=== PATIENT | male | born 1955 | race African-American/Black ===

== ENCOUNTER 2017-06-24 18:22 | Emergency (ER) | payer OTHER ==
[~2017-06-24] VITALS: Ht 132.1 cm; Wt 105.6 kg
[~2017-06-24 18:22] MED LIST: MULT-1030 PO; VITAMIN B PO; [UNRECOGNIZED DRUG - CODE] PO
[2017-06-24 18:30] VITALS: TEMP 36.6; Ht 132.1 cm; Wt 105.6 kg
[2017-06-24] MEDS ORDERED: ONDANSETRON INJ 2 MG/ML 2 ML VIAL IV STA (18:44)
[2017-06-24] MEDS ORDERED: MoRPHine SULFATE 4 MG/ML 1 ML CARP\\VIAL IV STA (18:44)
[2017-06-24 18:47] LABS: BASO % 0.2 %; BASO ABS # 0.01 K/uL (0-0.2); EOS % 1.2 %; EOS ABS # 0.07 K/uL (0-0.5); HEMATOCRIT 40.9 % (42-52); HEMOGLOBIN 14.6 g/dL (14.0-18.0); LYMPH % 31.9 %; LYMPH ABS # 1.89 K/uL (1.2-3.4); MEAN CELL VOLUME 90.9 fL (80-100); MEAN CORPUSCULAR HEMOGLOBIN 32.4 pg (25-34); MEAN CORPUSCULAR HGB CONC 35.7 g/dl (32-36); MEAN PLATELET VOLUME 10.7 fL (7.4-10.4); MONO % 6.6 %; MONO ABS # 0.39 K/uL (0.11-0.59); NEUT % 60.1 %; NEUT ABS # 3.56 K/uL (1.4-6.5); PLATELET COUNT 151 K/uL (130-400); RED CELL DISTRIBUTION WIDTH CV 12.5 % (11.5-14.5); RED CELL DISTRIBUTION WIDTH SD 41.7 fL (36.4-46.3); WHITE BLOOD COUNT 5.92 K/uL (4.8-10.8)
[2017-06-24] MEDS ORDERED: GI COCKTAIL PO ONE (19:00)
[2017-06-24 19:20] LABS: ALBUMIN 4.2 gm/dl (3.4-5.0); ALKALINE PHOSPHATASE 93 U/L (45-117); ALT/SGPT 32 U/L (12-78); AST/SGOT 50 U/L (15-37); BLOOD UREA NITROGEN 13 mg/dl (7-18); CALCIUM 9.2 mg/dl (8.5-10.1); CARBON DIOXIDE 24 mmol/L (21-32); CKMB 14.9 ng/ml (0.5-3.6); CREATININE 0.92 mg/dl (0.60-1.40); GLUCOSE 88 mg/dl (70-99); LIPASE 117 U/L (73-393); POTASSIUM 3.9 mmol/L (3.5-5.1); SODIUM 138 mmol/L (136-145); TOTAL PROTEIN 7.9 gm/dl (6.4-8.2)
--- NOTE | 2017-06-24 19:28 | DIAGNOSTIC IMAGING REPORT ---
CHEST ONE VIEW PORTABLE HISTORY: Atypical Chest Pain COMPARISON: None. FINDINGS: Lucency at the left lung apex which may represent a large bleb. This measures 6.9 cm. No definite pneumothorax. The heart is top normal in size. Left-sided dual-chamber pacemaker. A few right apical blebs. Emphysema. No focal lung consolidations to suggest pneumonia. No evidence for pulmonary edema. IMPRESSION: 1. No acute process within the chest. 2. Emphysema with biapical blebs. No definite pneumothorax. Electronically signed by: Russ Dimas M.D. 06/24/2017 7:27 PM Dictated Date/Time: 06/24/2017 7:25 PM
[2017-06-24 19:33] LABS: INR 0.9 (0.9-1.1)
[2017-06-24] MEDS ORDERED: OPTIRAY 320 IV PRN (20:30)
[2017-06-24] MEDS ORDERED: LIDOCAINE HCL 2% VISC SOLN 20 ML UDC ONE (20:38)
[2017-06-24] MEDS ORDERED: ALUMINUM/MAGNESIUM SUSP 30 ML UDC ONE (20:38)
--- NOTE | 2017-06-24 20:52 | DIAGNOSTIC IMAGING REPORT ---
CHEST CTA for PULMONARY ARTERIES CT DOSE: 597.59 mGy.cm HISTORY: Atypical chest pain. Positive d-dimer. TECHNIQUE: Multiaxial CT images of the chest were performed following the intravenous administration of contrast to evaluate the pulmonary arteries. Maximal intensity projection images were also obtained. A dose lowering technique was utilized adhering to the principles of ALARA. COMPARISON STUDY: Chest 06/24/2017. FINDINGS: No pleural or pericardial effusions. Left-sided dual-chamber pacemaker. Normal caliber thoracic aorta with no evidence for dissection. There is a tortuous aortic arch. Calcified left hilar lymph nodes. Some of the subsegmental pulmonary arteries are nondiagnostic due to motion artifact. However, the remaining pulmonary arteries show no definite filling defects to suggest pulmonary embolus. Calcified granuloma within the left lower lobe. Advanced bullous emphysema with multiple large blebs at the lung apices. A few scattered linear densities at the lung bases favor subsegmental atelectasis. Groundglass densities within the lower lobes posteriorly favor dependent change. Otherwise, no focal lung consolidations to suggest pneumonia. The central airways are patent. No fractures within the visualized osseous structures. The visualized liver, spleen, and adrenal glands are unremarkable. Hypodense lesions within the left kidney are incompletely characterize but favor cysts. These measure up to 2 cm. No mediastinal or hilar lymphadenopathy. IMPRESSION: 1. No evidence for pulmonary embolus with limitations as described above. 2. Advanced bullous emphysema. 3. A few bibasilar linear densities and groundglass densities within the lower lobes posteriorly and atelectasis/dependent change. Otherwise, no focal lung consolidations to suggest pneumonia. Electronically signed by: Russ Dimas M.D. 06/24/2017 8:51 PM Dictated Date/Time: 06/24/2017 8:41 PM
[2017-06-24 21:37] VITALS: BP 119/92; PULSE 70; O2SAT 98
--- NOTE | 2017-06-24 22:21 | EMERGENCY ROOM VISIT NOTE ---
History Report prepared by Scribe: Vika Robles Under the Supervision of: Dr. Dez Villagomez D.O. First contact with patient: 18:21 Stated Complaint: CHEST PAIN, SOB History of Present Illness The patient is a 61 year old male who presents to the Emergency Room with complaints of intermittent chest pain for the past 2 to 3 weeks. He was brought to the ED via EMS. He rates his current pain as a 7/10 in severity. This morning upon waking around 0400, he developed sharp chest pain that worsened when he was moving around at work today. He called EMS and was given Aspirin and Nitroglycerin in the field that provided minimal relief. He admits to some left arm pain earlier today that has since resolved. The patient has a history of a previous MO and has a pacemaker in place. He denies any history of cardiac stents. His last cardiac catheterization was in 1994. He notes he recently moved to the area from [place] and does not have a PCP yet, but is scheduled to see Dr. Ruth at [facility] next week. Pt denies headache, change in vision, fevers, shortness of breath, nausea, vomiting, diarrhea, pain with urination, and melena. Source of History: patient Onset: 2 to 3 weeks [employer] Position: chest Symptom Intensity: 7/10 Quality: sharp Timing: intermittent Modifying Factors (Worsening): movement Modifying Factors (Relieving): other (Aspirin, nitroglycerin) Associated Symptoms: No fevers, No headache, No SOB, No nausea, No vomiting , No melena, No diarrhea, No urinary symptoms Review of Systems See HPI for pertinent positives & negatives. A total of 10 systems reviewed and were otherwise negative. Past Medical & Surgical Medical Problems: (1) Cardiac pacemaker in situ (2) Hepatitis C Social History Smoking Status: Current Every Day Smoker Alcohol Use: occasionally Drug Use: none Marital Status: Housing Status: lives with significant other Occupation Status: employed Current/Historical Medications Scheduled Amlodipine (Norvasc), 10 MG PO DAILY Multiple Vitamins W/ Minerals (Centrum Men), 1 TAB PO DAILY Ribavirin (Rebetol), 200 MG PO DAILY [Vitamin B], Unknown Dose PO DAILY Allergies Coded Allergies: No Known Allergies (Unverified , 01/23/16) Physical Exam Vital Signs Date Time Temp Pulse Resp B/P (MAP) Pulse Ox O2 Delivery O2 Flow Rate FiO2 06/24/17 21:37 70 20 119/92 98 06/24/17 20:00 60 18 117/86 97 Room Air 06/24/17 18:56 Room Air 06/24/17 18:34 60 06/24/17 18:30 36.6 60 18 142/96 94 Room Air Physical Exam GENERAL: Sitting up in bed, alert, disheveled appearing, well nourished, no distress, non-toxic EYE EXAM: normal conjunctiva. OROPHARYNX: no exudate, no erythema, lips, buccal mucosa, and tongue normal and mucous membranes are moist NECK: supple, no nuchal rigidity, no adenopathy, non-tender LUNGS: Clear to auscultation. Normal chest wall mechanics HEART: no murmurs, S1 normal and S2 normal CHEST: Pacemaker located in left chest wall ABDOMEN: abdomen soft, non-tender, normo-active bowel sounds, no masses, no rebound or guarding. BACK: Back is symmetrical on inspection and there is no deformity, no midline tenderness, no CVA tenderness. SKIN: no rashes and no bruising UPPER EXTREMITIES: upper extremities are grossly normal. LOWER EXTREMITIES: No pitting edema. Calves are equal bilaterally. NEURO EXAM: Normal sensorium, cranial nerves II-XII grossly intact, normal speech, no gross weakness of arms, no gross weakness of legs. Gross sensation intact. Medical Decision & Procedures ER Provider Diagnostic Interpretation: Radiology results as stated below per my review and the radiologist's interpretation: CHEST ONE VIEW PORTABLE HISTORY: Atypical Chest Pain COMPARISON: None. FINDINGS: Lucency at the left lung apex which may represent a large bleb. This measures 6.9 cm. No definite pneumothorax. The heart is top normal in size. Left-sided dual-chamber pacemaker. A few right apical blebs. Emphysema. No focal lung consolidations to suggest pneumonia. No evidence for pulmonary edema. IMPRESSION: 1. No acute process within the chest. 2. Emphysema with biapical blebs. No definite pneumothorax. Electronically signed by: Russ Dimas M.D. 06/24/2017 7:27 PM Laboratory Results 06/24/17 18:10 Red Blood Count 4.50, Mean Corpuscular Volume 90.9, Mean Corpuscular Hemoglobin 32.4, Mean Corpuscular Hemoglobin Concent 35.7, Mean Platelet Volume 10.7, Neutrophils (%) (Auto) 60.1, Lymphocytes (%) (Auto) 31.9, Monocytes (%) (Auto) 6.6, Eosinophils (%) (Auto) 1.2, Basophils (%) (Auto) 0.2, Neutrophils # (Auto) 3.56, Lymphocytes # (Auto) 1.89, Monocytes # (Auto) 0.39, Eosinophils # (Auto) 0.07, Basophils # (Auto) 0.01 06/24/17 18:10 Test 06/24/17 18:10 06/24/17 21:30 White Blood Count 5.92 K/uL (4.8-10.8) Red Blood Count 4.50 M/uL (4.7-6.1) Hemoglobin 14.6 g/dL (14.0-18.0) Hematocrit 40.9 % (42-52) Mean Corpuscular Volume 90.9 fL (80-100) Mean Corpuscular Hemoglobin 32.4 pg (25-34) Mean Corpuscular Hemoglobin Concent 35.7 g/dl (32-36) Platelet Count 151 K/uL (130-400) Mean Platelet Volume 10.7 fL (7.4-10.4) Neutrophils (%) (Auto) 60.1 % Lymphocytes (%) (Auto) 31.9 % Monocytes (%) (Auto) 6.6 % Eosinophils (%) (Auto) 1.2 % Basophils (%) (Auto) 0.2 % Neutrophils # (Auto) 3.56 K/uL (1.4-6.5) Lymphocytes # (Auto) 1.89 K/uL (1.2-3.4) Monocytes # (Auto) 0.39 K/uL (0.11-0.59) Eosinophils # (Auto) 0.07 K/uL (0-0.5) Basophils # (Auto) 0.01 K/uL (0-0.2) RDW Standard Deviation 41.7 fL (36.4-46.3) RDW Coefficient of Variation 12.5 % (11.5-14.5) Immature Granulocyte % (Auto) 0.0 % Immature Granulocyte # (Auto) 0.00 K/uL (0.00-0.02) Prothrombin Time 9.8 SECONDS (9.0-12.0) Prothromb Time International Ratio 0.9 (0.9-1.1) D-Dimer 1530 ug/L FEU (0-500) Anion Gap 9.0 mmol/L (3-11) Est Creatinine Clear Calc Drug Dose 74.8 ml/min Estimated GFR () 105.1 Estimated GFR (Non- 90.7 BUN/Creatinine Ratio 14.0 (10-20) Calcium Level 9.2 mg/dl (8.5-10.1) Total Bilirubin 0.6 mg/dl (0.2-1) Direct Bilirubin 0.2 mg/dl (0-0.2) Aspartate Amino Transf (AST/SGOT) 50 U/L (15-37) Alanine Aminotransferase (ALT/SGPT) 32 U/L (12-78) Alkaline Phosphatase 93 U/L (45-117) Total Creatine Kinase 1247 U/L (39-308) Creatine Kinase MB 14.9 ng/ml (0.5-3.6) Creatine Kinase MB Ratio 1.2 (0-3.0) Total Protein 7.9 gm/dl (6.4-8.2) Albumin 4.2 gm/dl (3.4-5.0) Lipase 117 U/L (73-393) Troponin I < 0.015 ng/ml (0-0.045) Laboratory results per my review. Medications Administered Medications (Trade) Dose Ordered Sig/Anuradha Route Start Time Stop Time Status Last Admin Dose Admin Morphine Sulfate (MoRPHine SULFATE INJ) 4 mg NOW STAT IV 06/24/17 18:44 06/24/17 18:45 DC 06/24/17 19:02 4 MG Ondansetron HCl (Zofran Inj) 4 mg NOW STAT IV 06/24/17 18:44 06/24/17 18:45 DC 06/24/17 18:58 4 MG Lidocaine HCl (Viscous Lidocaine 2% Soln) 20 ml STK-MED ONCE .ROUTE 06/24/17 20:38 06/24/17 20:39 DC 06/24/17 21:02 20 ML Al Hydroxide/Mg Hydroxide (Maalox Susp) 30 ml STK-MED ONCE .ROUTE 06/24/17 20:38 06/24/17 20:39 DC 06/24/17 21:02 30 ML ECG Per My Interpretation Indication: chest pain Rate (beats per minute): 62 Rhythm: other (atrial paced) Findings: other (normal axis) ED Course ED COURSE: Vital signs were reviewed and showed the patient is situationally hypertensive The patients medical record was reviewed The above diagnostic studies were performed and reviewed. ED treatments and interventions as stated above. 1823: The patient was evaluated in room C9. A complete history and physical examination was performed. 1844: Zofran 4 mg IV, Morphine Sulfate 4 mg IV. 0: I reevaluated the patient. He states he feels loopy from the Morphine, but is more comfortable. 2037: Maalox Susp 30 ml PO, Lidocaine HCl 2% 20 ml PO. 2110: I discussed the patients case with Dr. Pina, [facility] Hospitalist. The patient will be further evaluated. 2124: Case Management informed me the patient does not want to stay in the hospital and would like to go home. 0: Upon reevaluation, the patient is feeling well and resting comfortably. He is agreeable to having repeat blood work drawn before he leaves. I discussed my findings with the patient and he understands and agrees with the treatment plan. Based on the patients age, coexisting illnesses, exam and lab findings the decision to treat as an outpatient was made. The patient remained stable while under my care. The patient appeared well at the time of discharge. Medical Decision Differential diagnoses includes but is not limited to acute coronary syndrome, myocardial infarction, pericarditis, pulmonary embolus, aortic dissection, pneumonia, pneumothorax, musculoskeletal, shingles, esophageal. Patient is a 61-year-old male that presents the ER for chest pain which she notes started at 4 AM this morning. He describes a sharp stabbing. No other exacerbating or remitting factors. He does have a history of a previous MO although he then change his story and notes that he had a CVA. He does have a pacemaker. CBC along with BMP, LFTs, bilirubin and troponin was negative. Lipase is normal. D-dimer was elevated and consequently CT PE was performed and unremarkable. EKG did not show a STEMI. Patient was given nitro and aspirin. He had resolution of his pain. On reevaluation I did strongly recommend admission. Pacemaker was interrogated and unremarkable. Significant other was at bedside. He notes that he does not want to stay as he does not feel that this is his heart and wants to get his significant other home. I had care management try to set up and additionally for her to get home but he notes he will not stay. After informed refusal of care and extensive explanation he was discharged to follow-up with PCP as an outpatient. He did allow us to redraw another troponin just prior to him leaving which eventually resulted as negative. The patient requested to leave. I considered this to be leaving against medical advice. I personally discussed the following with them. They currently had a medical condition of: chest pain and I am concerned that they have ACS or other serious pathology even despite negative troponin. My proposed course of evaluation and treatment and that of any consultants is: Admission. Benefits would include: possible diagnosis or excluding of ACS, unstable angina or an alternative serious conditions, which if identified early would lead to appropriate intervention in a timely manner lessing the burden of disability and . Risks of leaving before this had been completed include: misdiagnosis, worsening illness leading up to and including prolonged or permanent disability or . Specific risks pertinent, but not all inclusive, of their current medical condition include but are not limited to: and disability. Despite this they stated they wanted to leave due to not taking that this is his heart and wanted to get home and refused further evaluation, treatment, or admission at this time. They appear clinically sober, to be mentating appropriately, free from distracting injury, have controlled pain, appear to have intact insight, judgment, and reason and in my opinion have the capacity to make this decision. Specifically, they were able to verbally state back in a coherent manner their current medical condition/current diagnosis, the proposes course of treatment, and the risks, benefits, and alternatives of treatment versus leaving against medical advice. They understand that they may return to seek medical attention here at whatever time they want. I highly advised them to return to the Emergency Department immediately if they experienced any: Chest pain or shortness of breath, reconsidered treatment a/o admission, or had any other concerns. This would be without any repercussions. I recommended they follow-up with PCP within 24 hours for further evaluation and treatment. They were discharged with informed refusal of care Medication Reconcilliation Current Medication List: was personally reviewed by me Blood Pressure Screening Patient's blood pressure: Elevated blood pressure Blood pressure disposition: Elevated BP felt to be situational Consults Time Called: 2110 Consulting Physician: Dr. Pina, [facility] Hospitalist Returned Call: 2110 I discussed the patients case with Dr. Pina, [facility] Hospitalist. The patient will be further evaluated. Impression Primary Impression: Precordial chest pain Scribe Attestation The scribe's documentation has been prepared under my direction and personally reviewed by me in its entirety. I confirm that the note above accurately reflects all work, treatment, procedures, and medical decision making performed by me. Departure Information Dispostion Home / Self-Care Referrals No Doctor, Assigned (PCP) Patient Instructions Chest Pain - [facility], My [facility] Additional Instructions He presented to the ER with chest pain. I do believe that this could be your heart. I recommended observation overnight for which you declined as you wanted to get your significant other home. If you have any recurrence of this pain or at any point can you please return to the ER as soon as possible for further evaluation as I am concerned that this could be your heart and could kill you or disable you. Please follow up with your primary care doctor with in the next 24 hours. Any worsening of your symptoms, please return to the ED immediately. This includes any fevers greater than 100.4, worsening pain, chest pain, shortness breath, persistent nausea, vomiting, unable to eat or drink, or any other concerning signs or symptoms from your standpoint. Please follow-up with your primary care doctor and pharmacy picking tech as possible.
[2017-06-25] MEDS ORDERED: ALBUTEROL NEBS INH (15:17)
[2017-06-25] MEDS ORDERED: ASPI81TA28 PO (15:17)
[2017-06-25] MEDS ORDERED: AMLO-114 PO (21:21)
[2017-06-27] MEDS ORDERED: PRT40 PO (07:57)
[2017-06-27] MEDS ORDERED: LPR25 PO (07:57)
== END 2017-06-24 21:44 | disposition home or self-care (01) ==
LOC: EDBD 18:22 → C.EDC 18:23
DX: R07.2 Precordial pain (principal); I25.2 Old myocardial infarction; Z95.0 Presence of cardiac pacemaker; B19.20 Unspecified viral hepatitis C without hepatic coma; F17.210 Nicotine dependence, cigarettes, uncomplicated; Z79.899 Other long term (current) drug therapy

== ENCOUNTER 2017-06-25 14:21 | Observation (INO) | payer OTHER ==
[~2017-06-25] VITALS: Ht 193.7 cm; Wt 102.9 kg
[2017-06-25] MEDS ORDERED: ASPIRIN 81 MG CHEW PO STA (14:49)
--- NOTE | 2017-06-25 15:00 | EMERGENCY ROOM VISIT NOTE ---
History Report prepared by Sadiq: Lai Trotter Under the Supervision of: Dr. Merlin Barber D.O. First contact with patient: 14:39 Chief Complaint: CHEST PAIN Stated Complaint: CHEST PAIN, STOMACH PAIN, WEAK History of Present Illness The patient is a 61 year old male who presents to the Emergency Room with complaints of waxing and waning chest pain that began yesterday while at work. The patient rates the severity of the pain as a 10/10 at its worst, and notes that it is localized under the left breast. The patient called for EMS yesterday and was brought to the ED. His symptoms were improved by Nitroglycerin yesterday, and he went home against the physician's suggestions. Today his symptoms have returned. He notes that his symptoms are worsened with physical activity. When his pain onsets severely he becomes short of breath and diaphoretic. The patient had a pacemaker placed in 2003, which failed and he needed it to be replaced. The patient does not currently have any nitroglycerin tablets at home currently. Source of History: patient Onset: Yesterday Position: chest (left) Quality: other (Chest Pain) Timing: waxes/wanes Modifying Factors (Worsening): exertion Associated Symptoms: + diaphoresis, + SOB Review of Systems See HPI for pertinent positives & negatives. A total of 10 systems reviewed and were otherwise negative. Past Medical & Surgical Medical Problems: (1) Cardiac pacemaker in situ (2) Hepatitis C Social History Smoking Status: Current Every Day Smoker Alcohol Use: occasionally Drug Use: none Marital Status: Housing Status: lives with significant other Occupation Status: employed Current/Historical Medications Scheduled Amlodipine (Norvasc), 10 MG PO DAILY [Albuterol Nebs], 1 DOSE INH PRN UD Scheduled PRN Aspirin (Aspirin Ec), 81 MG PO DAILY PRN for chest pain Allergies Coded Allergies: No Known Allergies (Unverified , 01/23/16) Physical Exam Vital Signs Date Time Temp Pulse Resp B/P (MAP) Pulse Ox O2 Delivery O2 Flow Rate FiO2 06/25/17 16:51 60 16 96 06/25/17 16:36 64 19 97 06/25/17 16:21 60 22 97 06/25/17 16:13 117/72 06/25/17 16:06 60 17 94 06/25/17 15:51 61 24 99 06/25/17 15:36 61 16 95 06/25/17 15:30 65 20 132/94 98 Room Air 06/25/17 15:21 61 13 132/94 94 06/25/17 15:06 60 21 98 06/25/17 14:54 98 Room Air 06/25/17 14:53 98 Room Air 06/25/17 14:53 98 Room Air 06/25/17 14:51 63 21 99 06/25/17 14:48 60 06/25/17 14:34 36.7 61 20 150/98 99 Room Air Physical Exam GENERAL: Patient is awake, alert, and in no acute distress. Patient is resting comfortably and showing no signs of anxiety EYES: The conjunctivae are clear. The pupils are round and reactive. EARS, NOSE, MOUTH AND THROAT: The nose is without any evidence of any deformity. Mucous membranes are moist tongue is midline NECK: The neck is nontender and supple. RESPIRATORY: Normal respiratory effort is noted there is no evidence of wheezing rhonchi or rales CARDIOVASCULAR: Regular rate and rhythm noted there no murmurs rubs or gallops normal S1 normal S2 GASTROINTESTINAL: The abdomen is soft. Bowel sounds are present in all quadrants. Abdomen is nontender MUSCULOSKELETAL/EXTREMITIES: There is no evidence of gross deformity full range of motion is noted in the hips and shoulders SKIN: There is no obvious evidence of any rash. There are no petechiae, pallor or cyanosis noted. NEUROLOGIC: Patient is awake alert and oriented x3. Medical Decision & Procedures ER Provider Diagnostic Interpretation: Radiology results as stated below per my review and radiologist interpretation: CHEST ONE VIEW PORTABLE CLINICAL HISTORY: Chest pain. COMPARISON STUDY: Chest radiograph and chest CT June 24, 2017. FINDINGS: Severe bullous emphysema is noted, most pronounced within the left lung apex. There is no pneumothorax or pleural effusion. A dual lead left subclavian pacemaker is in place. Linear left basilar opacity is suggestive of atelectasis. There is no consolidation to suggest pneumonia. There is no evidence for pulmonary edema. IMPRESSION: 1. No acute cardiopulmonary findings. 2. Severe bullous emphysema. 3. Linear left basilar opacity suggestive of atelectasis Electronically signed by: Juan Kirkland M.D. 06/25/2017 3:15 PM Dictated Date/Time: 06/25/2017 3:13 PM Laboratory Results 06/25/17 14:45 Red Blood Count 4.45, Mean Corpuscular Volume 91.5, Mean Corpuscular Hemoglobin 31.9, Mean Corpuscular Hemoglobin Concent 34.9, Mean Platelet Volume 11.0, Neutrophils (%) (Auto) 61.0, Lymphocytes (%) (Auto) 29.0, Monocytes (%) (Auto) 7.9, Eosinophils (%) (Auto) 1.7, Basophils (%) (Auto) 0.2, Neutrophils # (Auto) 2.93, Lymphocytes # (Auto) 1.39, Monocytes # (Auto) 0.38, Eosinophils # (Auto) 0.08, Basophils # (Auto) 0.01 06/25/17 14:45 Test 06/25/17 14:45 06/25/17 14:58 White Blood Count 4.80 K/uL (4.8-10.8) Red Blood Count 4.45 M/uL (4.7-6.1) Hemoglobin 14.2 g/dL (14.0-18.0) Hematocrit 40.7 % (42-52) Mean Corpuscular Volume 91.5 fL (80-100) Mean Corpuscular Hemoglobin 31.9 pg (25-34) Mean Corpuscular Hemoglobin Concent 34.9 g/dl (32-36) Platelet Count 150 K/uL (130-400) Mean Platelet Volume 11.0 fL (7.4-10.4) Neutrophils (%) (Auto) 61.0 % Lymphocytes (%) (Auto) 29.0 % Monocytes (%) (Auto) 7.9 % Eosinophils (%) (Auto) 1.7 % Basophils (%) (Auto) 0.2 % Neutrophils # (Auto) 2.93 K/uL (1.4-6.5) Lymphocytes # (Auto) 1.39 K/uL (1.2-3.4) Monocytes # (Auto) 0.38 K/uL (0.11-0.59) Eosinophils # (Auto) 0.08 K/uL (0-0.5) Basophils # (Auto) 0.01 K/uL (0-0.2) RDW Standard Deviation 42.3 fL (36.4-46.3) RDW Coefficient of Variation 12.5 % (11.5-14.5) Immature Granulocyte % (Auto) 0.2 % Immature Granulocyte # (Auto) 0.01 K/uL (0.00-0.02) Prothrombin Time 10.0 SECONDS (9.0-12.0) Prothromb Time International Ratio 1.0 (0.9-1.1) Activated Partial Thromboplast Time 28.7 SECONDS (21.0-31.0) Partial Thromboplastin Ratio 1.1 Anion Gap 8.0 mmol/L (3-11) Est Creatinine Clear Calc Drug Dose 101.7 ml/min Estimated GFR () 90.7 Estimated GFR (Non- 78.2 BUN/Creatinine Ratio 11.2 (10-20) Calcium Level 8.5 mg/dl (8.5-10.1) Total Bilirubin 0.4 mg/dl (0.2-1) Direct Bilirubin < 0.1 mg/dl (0-0.2) Aspartate Amino Transf (AST/SGOT) 40 U/L (15-37) Alanine Aminotransferase (ALT/SGPT) 29 U/L (12-78) Alkaline Phosphatase 100 U/L (45-117) Total Creatine Kinase 821 U/L (39-308) Creatine Kinase MB 9.5 ng/ml (0.5-3.6) Creatine Kinase MB Ratio 1.2 (0-3.0) Total Protein 7.8 gm/dl (6.4-8.2) Albumin 4.0 gm/dl (3.4-5.0) Lipase 236 U/L (73-393) Bedside Troponin I < 0.030 ng/ml (0-0.045) Laboratory results per my review. Medications Administered Medications (Trade) Dose Ordered Sig/Anuradha Route Start Time Stop Time Status Last Admin Dose Admin Aspirin (Aspirin Chew) 324 mg NOW STAT PO 06/25/17 14:49 06/25/17 14:50 DC 06/25/17 15:04 324 MG Nitroglycerin (Nitrostat Tab) 0.4 mg Q5M PRN SL 06/25/17 15:00 07/25/17 14:59 06/25/17 15:54 0.4 MG Pantoprazole Sodium (Protonix Tab) 40 mg NOW STAT PO 06/25/17 16:52 06/25/17 17:13 DC 06/25/17 17:47 40 MG ECG Per My Interpretation Indication: chest pain, diaphoresis, SOB/dyspnea Rate (beats per minute): 64 Rhythm: other (Atrially paced) Findings: paced rhythm, other (No PVCs, no acute ST-segment abnormalities. ) Comparison ECG Date: 06/25/2016 Change: no significant change ED Course 1448: The patient was evaluated in room B6. A complete history and physical examination were performed. 1449: Ordered Aspirin 324 mg PO. 1500: Ordered Nitroglycerin 0.4 mg SL. 1606: I discussed the case with Dr. Adolfo CAICEDO Hospitalist. She will evaluate the patient for further treatment. Medical Decision Differential diagnosis: Etiologies such as cardiac ischemia, aortic dissection, pulmonary embolism, pneumonia, pneumothorax, musculoskeletal, infections, pericarditis, myocarditis , esophageal rupture, gastrointestinal, as well as others were entertained. Nursing notes reviewed. Patient's previous electronic medical records reviewed. The patient is a 61-year-old male who presented to the emergency department for evaluation of chest discomfort. The patient was seen yesterday with similar complaints. It was recommended that he stay in the hospital for further evaluation. The patient decided he did not wish to stay in the hospital and left against the advice of the admitting physician. The patient returned today because his chest pain returned. The patient was having exertional symptoms. I discussed the patient's laboratory and radiographic studies with him. I discussed the limitations of the emergency department workup with him. Because of his symptoms I discussed this case with the on-call amount and the hospitalist group. They have agreed to evaluate the patient in the emergency department for further management and disposition. Medication Reconcilliation Current Medication List: was personally reviewed by me Blood Pressure Screening Patient's blood pressure: Elevated blood pressure referred to hospitalist Consults Time Called: 1600 Consulting Physician: Dr. Adolfo CAICEDO Hospitalist Returned Call: 1606 I discussed the case with Dr. Adolfo Britton. She will evaluate the patient for further treatment. Impression Primary Impression: Exertional chest pain Scribe Attestation The scribe's documentation has been prepared under my direction and personally reviewed by me in its entirety. I confirm that the note above accurately reflects all work, treatment, procedures, and medical decision making performed by me. Departure Information Dispostion Being Evaluated By Hospitalist Referrals Fior Ruth DO (PCP) Patient Instructions My [facility]
[2017-06-25] MEDS: NITROGLYCERIN 0.4 MG SL PER TAB CHARGE SL PRN ×3 (15:04→21:42)
[2017-06-25 15:10] LABS: PTT PATIENT 28.7 SECONDS (21.0-31.0)
[2017-06-25 15:14] LABS: BASO % 0.2 %; BASO ABS # 0.01 K/uL (0-0.2); EOS % 1.7 %; EOS ABS # 0.08 K/uL (0-0.5); HEMATOCRIT 40.7 % (42-52); HEMOGLOBIN 14.2 g/dL (14.0-18.0); IG# 0.01 K/uL (0.00-0.02); LYMPH ABS # 1.39 K/uL (1.2-3.4); MEAN CELL VOLUME 91.5 fL (80-100); MEAN CORPUSCULAR HEMOGLOBIN 31.9 pg (25-34); MEAN CORPUSCULAR HGB CONC 34.9 g/dl (32-36); MONO % 7.9 %; MONO ABS # 0.38 K/uL (0.11-0.59); NEUT ABS # 2.93 K/uL (1.4-6.5); PLATELET COUNT 150 K/uL (130-400); RED CELL DISTRIBUTION WIDTH CV 12.5 % (11.5-14.5); RED CELL DISTRIBUTION WIDTH SD 42.3 fL (36.4-46.3)
--- NOTE | 2017-06-25 15:16 | DIAGNOSTIC IMAGING REPORT ---
CHEST ONE VIEW PORTABLE CLINICAL HISTORY: Chest pain. COMPARISON STUDY: Chest radiograph and chest CT June 24, 2017. FINDINGS: Severe bullous emphysema is noted, most pronounced within the left lung apex. There is no pneumothorax or pleural effusion. A dual lead left subclavian pacemaker is in place. Linear left basilar opacity is suggestive of atelectasis. There is no consolidation to suggest pneumonia. There is no evidence for pulmonary edema. IMPRESSION: 1. No acute cardiopulmonary findings. 2. Severe bullous emphysema. 3. Linear left basilar opacity suggestive of atelectasis Electronically signed by: Juan Kirkland M.D. 06/25/2017 3:15 PM Dictated Date/Time: 06/25/2017 3:13 PM
[2017-06-25] MEDS ORDERED: ASPI81TA28 PO (15:17)
[2017-06-25] MEDS ORDERED: ALBUTEROL NEBS INH (15:17)
[2017-06-25 15:45] LABS: ALKALINE PHOSPHATASE 100 U/L (45-117); ALT/SGPT 29 U/L (12-78); AST/SGOT 40 U/L (15-37); BLOOD UREA NITROGEN 12 mg/dl (7-18); CALCIUM 8.5 mg/dl (8.5-10.1); CARBON DIOXIDE 24 mmol/L (21-32); CKMB 9.5 ng/ml (0.5-3.6); CREATININE 1.04 mg/dl (0.60-1.40); GLUCOSE 98 mg/dl (70-99); LIPASE 236 U/L (73-393); POTASSIUM 3.9 mmol/L (3.5-5.1); SODIUM 137 mmol/L (136-145); TOTAL PROTEIN 7.8 gm/dl (6.4-8.2)
[2017-06-25] MEDS ORDERED: PANTOprazole SOD 40 MG TAB PO STA (16:52)
[2017-06-25] MEDS ORDERED: MoRPHine SULFATE 4 MG/ML 1 ML CARP\\VIAL IV PRN ×2 (17:00→17:15)
[2017-06-25] MEDS ORDERED: MAGNESIUM HYDROXIDE SUSP 30 ML UDC PO PRN (17:00)
[2017-06-25] MEDS ORDERED: ALUMINUM/MAGNESIUM/SIMETH (MAALOX MAX) 30 ML UDC PO PRN (17:00)
[2017-06-25] MEDS ORDERED: NITROGLYCERIN 0.4 MG SL PER TAB CHARGE SL PRN (17:00)
[2017-06-25] MEDS ORDERED: POLYETHYLENE (MIRALAX) 17 GM PACK PO PRN (17:00)
[2017-06-25] MEDS ORDERED: ONDANSETRON INJ 2 MG/ML 2 ML VIAL IV PRN (17:00)
[2017-06-25] MEDS ORDERED: ACETAMINOPHEN 325 MG TAB PO PRN (17:00)
[2017-06-25] MEDS ORDERED: ZOLPIDEM TARTRATE 5 MG TAB PO PRN (17:00)
--- NOTE | 2017-06-25 17:12 | History and Physical ---
History & Physical Date of Service June 25, 2017. History & Physical chest pain rule out [id number]
[2017-06-25] MEDS ORDERED: IV FLUIDS COMPLETED PRN (17:15)
[2017-06-25] MEDS ORDERED: OPTIRAY 320 IV PRN (17:15)
[2017-06-25] MEDS ORDERED: METOPROLOL TARTRATE 25 MG TAB PO STA (17:19)
[2017-06-25] MEDS ORDERED: METOPROLOL TARTRATE 50 MG TAB ONE (17:42)
--- NOTE | 2017-06-25 17:51 | HISTORY & PHYSICAL EXAMINATION ---
DATE OF ADMISSION: 06/25/2017 This is observation H and P, 35 minutes. CHIEF COMPLAINT: Chest pain. HISTORY OF PRESENT ILLNESS: The patient is a 61-year-old male complaining of chest pain, coming to the Emergency Room. He was seen in this Emergency Room yesterday because of the chest pain pain. He had evaluation, enzyme troponin was negative, and chest CT has rule out PE, however was recommended to be observation in the hospital; however, he left against medical advice. The patient reported he is having the chest pain for 2 days, comes and goes, and it has been getting worse while he walks, he rates the pain as 10/10 at worst, which is localized under the left breast. He came into the Emergency Room yesterday by ambulance, and his symptom was improved after nitroglycerin yesterday. Today, he reported his chest pain returned, which has been getting worse, associated with physical activities. He reported the chest pain is associated with diaphoresis and shortness of breath. When I examined him, he reported the chest pain was 8/10 radiation to the back. Associated with mild nauseation; no vomiting; denied dysuria, urgency, or frequencies. ALLERGIES: No known drug allergies. PAST MEDICAL HISTORY: Include significant cardiac pacemaker placement x2, the first time was failed and the second time was successful, the reason for the pacemaker was because of some heart murmurs, and some syncope events. FAMILY HISTORY: Per record, he has a history of hep C; however, the patient denied. SOCIAL HISTORY: Continue smoking less than half pack per day. Denied alcohol abuse disorder, denied illicit drug abuse. Lives with significant others. MEDICATIONS: Current medicines include amlodipine 10 mg p.o. daily for high blood pressure, albuterol nebulizer treatment use as needed. As needed p.r.n. medication include aspirin for chest pain. REVIEW OF SYSTEMS: Please see HPI. PHYSICAL EXAMINATION: VITAL SIGNS: Temperature 36.7, pulse 61, respiration rate 20, blood pressure initially was 150/98, currently is 132/94. GENERAL: The patient is male, awake, alert and oriented, pleasant, conversational. Reports he is in pain. HEAD: Normocephalic. EYES: Pupils equal, round responds to light. EARS: Ear was normal. NOSE: Normal. NECK: Supple. Thyroid, no enlargement. Trachea midline. HEART: Regular rhythm, S1, S2, has no murmur. LUNGS: Decreased breathing sounds. There was no wheezing, rhonchi or crackles. ABDOMEN: Soft, nontender. Bowel sound was positive. GENITOURINARY AND RECTAL: Deferred. Bilateral CVA was nontender. BILATERAL LOWER EXTREMITIES: No swelling. Homans sign was negative. NEUROLOGICAL EVALUATION: Cranial nerves II-XII was intact. There was no local deficits. SKIN: Has no rashes. No tremor. IMAGING STUDIES: In the Emergency Room, chest x-ray, no acute cardiopulmonary findings. There was severe bullous emphysema. EKGs, there was no obvious ST-T wave changes. No arrhythmia. LABORATORY STUDIES: WBC 7.8, hemoglobin 14, platelet 150. Sodium 137, potassium 3.9, BUN 12, creatinine 1.04, blood glucose 98. Cardiac enzyme, troponin was negative x1 set. Lipase 236, which was negative. Albumin 4, total protein 7.8. Liver function was within normal limits. Chest CT yesterday was done in the emergency no which was negative for pulmonary embolization. The patient got aspirin and nitroglycerin one dose in the Emergency Room. ASSESSMENT AND PLAN: A 61-year-old male with history of hypertension, pacemaker, history of heart murmur, possible hepatitis C but the patient denied, comes to the hospital Emergency Department because of the above chief complaint. 1. Chest pain, need to rule out acute coronary syndrome. Chest CT has rule out PE 2. Accelerated hypertension. 3. Tobacco abuse disorder with severe emphysema in the chest CT study 4. New moving into this area. 5. History of heart murmur and had a second time pacemaker. 6. Documented history of hepatitis C, but the patient denied. 7. Family History: Significant family history of heart disease. PLAN: 1. Because of the patient's chest pain and with significant risk factors which include tobacco abuse disorder, hypertension, and family histories, we need to rule acute coronary syndrome. Will check cardiac enzyme, troponin x2 sets more. We ordered exercise treadmill to rule out acute coronary syndrome. At the same time, I want to do the drug screening, counseling how to quit smoking, offered help, patient declined of any nicotine patch, will optimize blood pressure control, will check hemoglobin A1c, fasting lipid panels, will continue aspirin and start a beta alexander. 2. Gastrointestinal prophylaxis will be Protonix. DVT prophylaxis will be Lovenox. The patient is FULL CODE, we will keep n.p.o. midnight. Discussed with the patient and his at the bedside. I answered all the questions. JEFF
[2017-06-25 19:24] VITALS: BP 122/72; PULSE 63; TEMP 36.8; O2SAT 97
[2017-06-25 19:42] VITALS: BP 135/97; PULSE 60; TEMP 36.8; O2SAT 94; Ht 193.7 cm; Wt 102.9 kg
[2017-06-25] MEDS: METOPROLOL TARTRATE 25 MG TAB PO SCH (20:35)
[2017-06-25] MEDS: ENOXAPARIN 40 MG/0.4 ML SYR SC SCH (20:36)
[2017-06-25] MEDS ORDERED: AMLO-114 PO (21:21)
[2017-06-25 21:38] VITALS: BP 161/109; PULSE 65; TEMP 36.5; O2SAT 100
[2017-06-25 21:44] VITALS: BP 146/83; PULSE 61; O2SAT 96
[2017-06-25 23:07] LABS: CKMB 6.4 ng/ml (0.5-3.6)
[2017-06-25 23:29] VITALS: BP 123/81; PULSE 65; TEMP 36.9; O2SAT 99
[2017-06-26 03:25] VITALS: BP 108/70; PULSE 65; TEMP 36.7; O2SAT 96
[2017-06-26 07:39] VITALS: BP 110/69; PULSE 62; TEMP 36.7; O2SAT 96
[2017-06-26 07:41] LABS: CHOLESTEROL 129 mg/dl (0-200); CKMB 5.7 ng/ml (0.5-3.6); LDL CHOLESTEROL CALCULATED 62 mg/dl
[2017-06-26] MEDS ORDERED: ASPIRIN 81 MG ECTAB PO SCH (09:00)
[2017-06-26] MEDS ORDERED: PANTOprazole SOD 40 MG TAB PO SCH (09:00)
[2017-06-26] MEDS: METOPROLOL TARTRATE 25 MG TAB PO SCH ×2 (09:23→19:39)
[2017-06-26 10:26] LABS: HEMOGLOBIN A1C 5.7 % (4.5-5.6)
[2017-06-26 11:51] VITALS: BP 141/100; PULSE 60; TEMP 37.3; O2SAT 98
[2017-06-26 14:58] VITALS: BP 139/94; PULSE 64; TEMP 36.3; O2SAT 98
--- NOTE | 2017-06-26 15:33 | Progress Note ---
Subjective Date of Service: June 26, 2017. 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 Status: Acute (5) Exertional chest pain Status: Acute (6) Fall Status: Acute (7) Hepatitis C Status: Chronic (8) Left hip pain Status: Acute (9) Precordial chest pain Status: Acute Review of Systems Constitutional: No fever, No chills, No sweats, No weight loss, No weakness, No fatigue, No problem reported Eyes: No worsening of vision, No eye pain, No redness, No discharge, No diplopia ENT: No hearing loss, No unusual epistaxis, No nasal symptoms, No sore throat, No tinnitus, No dental problems, No trouble swallowing Respiratory: No cough, No sputum, No wheezing, No shortness of breath, No dyspnea on exertion, No dyspnea at rest, No hemoptysis Cardiac: No chest pain, No orthopnea, No PND, No edema, No claudication, No palpitations Abdomen: No pain, No nausea, No vomiting, No diarrhea, No constipation Musculoskeletal: No joint pain, No muscle pain, No swelling, No calf pain Male : No dysuria, No urinary frequency, No incontinence, No nocturia more than once/night, No slowing stream, No hematuria Neurologic: No memory loss, No paralysis, No weakness, No numbness/tingling, No vertigo, No balance problems Psychiatric: No depression symptoms, No anhedonism, No anxiety, No insomnia, No substance abuse Heme: No abnormal bleeding/bruising, No clotting problems, No swollen lymph nodes, No night sweats Endo: No fatigue, No excessive thirst, No excessive urination Skin: No rash, No itch, No new/changing skin lesions, No color change, No bleeding Objective Vital Signs Date Time Temp Pulse Resp B/P (MAP) Pulse Ox O2 Delivery O2 Flow Rate FiO2 06/26/17 14:58 36.3 64 19 139/94 (109) 98 Room Air 06/26/17 12:00 Room Air 06/26/17 11:51 37.3 60 18 141/100 (114) 98 Room Air 06/26/17 08:00 Room Air 06/26/17 07:39 36.7 62 18 110/69 (83) 96 Room Air 06/26/17 04:09 Room Air 06/26/17 03:25 36.7 65 20 108/70 (83) 96 Room Air 06/26/17 00:02 Room Air 06/25/17 23:29 36.9 65 18 123/81 (95) 99 Room Air 06/25/17 21:44 61 22 146/83 (104) 96 Room Air 06/25/17 21:38 36.5 65 20 161/109 (126) 100 Room Air 06/25/17 20:00 Room Air 06/25/17 19:42 36.8 60 20 135/97 94 Room Air 06/25/17 19:24 36.8 63 18 122/72 (89) 97 Room Air 06/25/17 17:51 63 17 100 06/25/17 17:46 112/74 06/25/17 17:36 61 19 96 06/25/17 17:21 61 16 97 06/25/17 17:06 60 18 97 06/25/17 17:03 60 20 117/72 96 Room Air 06/25/17 16:51 60 16 96 06/25/17 16:36 64 19 97 06/25/17 16:21 60 22 97 06/25/17 16:13 117/72 06/25/17 16:06 60 17 94 06/25/17 15:51 61 24 99 06/25/17 15:36 61 16 95 06/25/17 15:30 65 20 132/94 98 Room Air Physical Exam General Appearance: WD/WN, no apparent distress Eyes: normal inspection, PERRL, EOMI, sclerae normal ENT: normal ENT inspection, hearing grossly normal, pharynx normal Neck: supple, no adenopathy, thyroid normal, no JVD, no carotid bruits, trachea midline Respiratory/Chest: chest non-tender, normal breath sounds, no respiratory distress, no accessory muscle use, + decreased breath sounds Cardiovascular: regular rate, rhythm, no edema, no gallop, no JVD, no murmur Abdomen: normal bowel sounds, non tender, soft, no organomegaly, no pulsatile mass Extremities: normal range of motion, non-tender, normal inspection, no pedal edema, no calf tenderness, normal capillary refill, pelvis stable Neurologic/Psychiatric: research development manager II-XII nml as tested, no motor/sensory deficits, alert, normal mood/affect, oriented x 3 Skin: normal color, warm/dry, no rash Lymphatic: no adenopathy Laboratory Results Last 24 Hours Test 06/25/17 17:11 06/25/17 22:00 06/25/17 22:13 06/25/17 23:20 Troponin I < 0.015 ng/ml < 0.015 ng/ml Creatine Kinase MB Ratio Creatine Kinase MB 6.4 ng/ml Test 06/26/17 06:00 06/26/17 06:12 06/26/17 07:00 Creatine Kinase MB Ratio Estimated Average Glucose 117 mg/dl Hemoglobin A1c 5.7 % Creatine Kinase MB 5.7 ng/ml Triglycerides Level 160 mg/dl Cholesterol Level 129 mg/dl HDL Cholesterol 35 mg/dl LDL Cholesterol, Calculated 62 mg/dl VLDL Cholesterol, Calculated 32 mg/dl Cholesterol/HDL Ratio 3.7 Thyroid Stimulating Hormone (TSH) 0.652 uIu/ml Urine Opiates Screen NEG Urine Methadone, Qualitative NEG Urine Barbiturates NEG Urine Phencyclidine (PCP) Level NEG Ur Amphetamine/Methamphetamine NEG MDMA (Ecstasy) Screen NEG Urine Benzodiazepines Screen NEG Urine Cocaine Metabolite NEG Urine Marijuana (THC) POS Assessment and Plan 61-year-old male with history of hypertension, pacemaker, history of heart murmur, was kept in observation because of chest pain on June Chest pain, need to rule out acute coronary syndrome. Chest CT has rule out PE Accelerated hypertension upon admission Tobacco abuse disorder with severe emphysema in the chest CT study, has consult quit smoking New moving into this area. However patient has PCP Dr. Ramirez History of heart murmur and had a second time pacemaker. Documented history of hepatitis C, but the patient denied. Hepatitis C checked which was negative in this admission Family History: Significant family history of heart disease. Cardiac enzymes troponin was checked time to set were negative EKG was not remarkable exercise stress test possible no work for patient because possible not able to reach a target heart rate based on his pacer check hemoglobin A1c, fasting lipid panels, were checked, were unremarkable, will continue aspirin and mbeta alexander. Planning nuclear stress test tomorrow Possible GERD, patient is on Protonix gastrointestinal prophylaxis will be Protonix. DVT prophylaxis will be Lovenox. FULL CODE, we will keep n.p.o. midnight.
[2017-06-26 18:49] VITALS: BP 136/93; PULSE 62; TEMP 36.5; O2SAT 96
[2017-06-26] MEDS: ENOXAPARIN 40 MG/0.4 ML SYR SC SCH (19:39)
[2017-06-26 23:48] VITALS: BP 100/68; PULSE 67; TEMP 36.6; O2SAT 97
[2017-06-27 03:58] VITALS: BP 108/73; PULSE 64; TEMP 36.6; O2SAT 98
[2017-06-27 06:50] VITALS: BP 105/72; PULSE 62; TEMP 36.6; O2SAT 94
[2017-06-27] MEDS ORDERED: LPR25 PO (07:57)
[2017-06-27] MEDS ORDERED: PRT40 PO (07:57)
[2017-06-27] MEDS ORDERED: REGADENOSON 0.4 MG/5 ML SYR ONE (08:16)
[2017-06-27 11:35] VITALS: BP 118/84; PULSE 64; TEMP 36.9; O2SAT 98
--- NOTE | 2017-06-27 15:06 | Discharge Instructions ---
Discharge Instructions Date of Service June 27, 2017. Admission Reason for Admission: Exertional Chest Pain Discharge Discharge Diagnosis / Problem: Chest pain Discharge Goals Goal(s): Decrease discomfort, Improve function, Increase independence, Improve disease control, Improve nutritional status, Learn about illness, Diagnostic testing, Therapeutic intervention, Prevent Disease Progression, Specific goals Activity Recommendations Activity Limitations: resume your previous activity . Instructions / Follow-Up Instructions / Follow-Up You have atypical chest pain Is pending the results of your stress test, Will let you go home if the stress test negative Your chest CT has rule out pulmonary emboli You have accelerated hypertension upon admission you was smoking, I recommend quit smoking you was using marijuana please quit it You possible possible GERD, patient is on Protonix Prescription has test to your pharmacy - you need to follow up with your primary care physician in 1 week, - take medication as instructed, never overdose or any misuse, or take with alcohol, because misuse of medicine may cause organ damage or , call me , or your primary care physician if have questions of discharge medicaitons. - call your primary care physician, or go to local emergency room if has any fever/chill, chest pain, shortness of breathing, nausea/vomiting/abdominal pain , facial droop/slurry speech/local weakness, or if has any questions. - fall precaution - diet as instructed Current Hospital Diet Patient's current hospital diet: AHA Diet (Heart Healthy) Discharge Diet Recommended Diet: AHA Diet (Heart Healthy) Pending Studies Studies pending at discharge: no Laboratory Results Hemoglobin A1c Test 06/26/17 06:12 Range/Units Estimated Average Glucose 117 mg/dl Hemoglobin A1c 5.7 H 4.5-5.6 % Lipid Panel Test 06/26/17 06:12 Range/Units Triglycerides Level 160 H 0-150 mg/dl Cholesterol Level 129 0-200 mg/dl HDL Cholesterol 35 mg/dl Cholesterol/HDL Ratio 3.7 LDL Cholesterol, Calculated 62 mg/dl Medical Emergencies . Who to Call and When: Medical Emergencies: If at any time you feel your situation is an emergency, please call 911 immediately. . Non-Emergent Contact Non-Emergency issues call your: Primary Care Provider . . "Provider Documentation" section prepared by Campbell Hicks. .
--- NOTE | 2017-06-27 15:13 | Discharge Summary ---
Discharge Summary Date of Service June 27, 2017. Discharge Summary Admission Date: June 25, 2017 at 16:59 Discharge Date: June 27, 2017 Discharge Disposition: Home Principal Diagnosis: Atypical chest pain Problems/Secondary Diagnoses: (1) Cardiac pacemaker in situ Status: Chronic (2) Hepatitis C Status: Chronic Procedures: Nuclear stress test Consultations: No Medication Reconciliation New Medications: Metoprolol Tartrate (Lopressor) 25 Mg Tab 25 MG PO BID for 30 Days, #60 TAB Pantoprazole (Pantoprazole Sodium) 40 Mg Tab 40 MG PO QAM for 30 Days, #30 TAB Continued Medications: Aspirin (Aspirin Ec) 81 Mg Tab 81 MG PO DAILY PRN for chest pain [Albuterol Nebs] () 1 DOSE INH PRN UD Discontinued Medications: Amlodipine (Norvasc) 10 Mg Tab 10 MG PO DAILY, TAB Discharge Exam Doing well, no chest pain, up and walk, Review of Systems: Constitutional: No fever, No chills, No sweats, No weight loss, No weakness , No fatigue, No problem reported Eyes: No worsening of vision, No eye pain, No redness, No discharge, No diplopia, No problem reported ENT: No hearing loss, No unusual epistaxis, No nasal symptoms, No sore throat, No tinnitus, No dental problems, No trouble swallowing, No problem reported Respiratory: No cough, No sputum, No wheezing, No shortness of breath, No dyspnea on exertion, No dyspnea at rest, No hemoptysis, No problem reported Cardiovascular: No chest pain, No orthopnea, No PND, No edema, No claudication, No palpitations, No problem reported Abdomen: No pain, No nausea, No vomiting, No diarrhea, No constipation, No GI bleeding, No problem reported Musculoskeletal: No joint pain, No muscle pain, No swelling, No calf pain, No problem reported Genitourinary - Male: No hematuria, No dysuria, No urinary frequency, No urinary urgency, No urinary hesitancy, No urinary retention, No urinary incontinence, No penile discharge, No lesions, No impotence, No problem reported Neurologic: No memory loss, No paralysis, No weakness, No numbness/tingling , No vertigo, No balance problems, No problem reported Psychiatric: No depression symptoms, No anhedonism, No anxiety, No insomnia , No substance abuse, No problem reported Endocrine: No fatigue, No excessive thirst, No excessive urination, No problem reported Hematologic / Lymphatic: No abnormal bleeding/bruising, No clotting problems , No swollen lymph nodes, No night sweats, No problem reported Integumentary: No rash, No itch, No new/changing skin lesions, No color change, No bleeding, No problem reported Physical Exam: General Appearance: WD/WN, no apparent distress Eyes: normal inspection, PERRL ENT: normal ENT inspection, hearing grossly normal, TMs normal, pharynx normal Neck: supple, no adenopathy, thyroid normal Respiratory/Chest: chest non-tender, lungs clear, normal breath sounds, no respiratory distress, no accessory muscle use Cardiovascular: regular rate, rhythm, no edema, no gallop, no JVD, no murmur , normal peripheral pulses, + pertinent finding (Permanent pacemaker in place) Abdomen / GI: normal bowel sounds, non tender, soft, no organomegaly, no pulsatile mass, normal rectal exam, occult blood negative Extremities: normal inspection, no calf tenderness, normal capillary refill , no pedal edema Neurologic/Psychiatric: 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 Chest CT has rule out PE Today nuclear stress test was done pending report, will discharge him home if stress test is negative Accelerated hypertension upon admission, blood pressure improved after change amlodipine to metoprolol Tobacco abuse disorder with severe emphysema in the chest CT study, has consult quit smoking New moving into this area. However patient has PCP Dr. Ramirez History of heart murmur and had a second time pacemaker. Documented history of hepatitis C, but the patient denied. Hepatitis C checked which was negative in this admission Family History: Significant family history of heart disease. Cardiac enzymes troponin was checked time to set were negative EKG was not remarkable exercise stress test possible no work for patient because possible not able to reach a target heart rate based on his pacer check hemoglobin A1c which was 5.7, fasting lipid panels, were checked, were unremarkable, will continue aspirin and beta alexander. Possible GERD, patient is on Protonix gastrointestinal prophylaxis: Protonix. DVT prophylaxis: Lovenox. FULL CODE, Instructions / Follow-Up You have atypical chest pain Is pending the results of your stress test, Will let you go home if the stress test negative Your chest CT has rule out pulmonary emboli You have accelerated hypertension upon admission you was smoking, I recommend quit smoking you was using marijuana please quit it You possible possible GERD, patient is on Protonix Prescription has test to your pharmacy - you need to follow up with your primary care physician in 1 week, - take medication as instructed, never overdose or any misuse, or take with alcohol, because misuse of medicine may cause organ damage or , call me , or your primary care physician if have questions of discharge medicaitons. - call your primary care physician, or go to local emergency room if has any fever/chill, chest pain, shortness of breathing, nausea/vomiting/abdominal pain , facial droop/slurry speech/local weakness, or if has any questions. - fall precaution - diet as instructed Total Time Spent: Greater than 30 minutes This includes examination of the patient, discharge planning, medication reconciliation, and communication with other providers. Discharge Instructions Please refer to the electronic Patient Visit Report (Discharge Instructions) for additional information. Additional Copies To Fior Ruth,
[2017-06-27 16:18] VITALS: BP 133/98; PULSE 62; TEMP 36.5; O2SAT 98
[2017-06-27 16:49] VITALS: BP 133/98; PULSE 62; TEMP 36.5; O2SAT 98
--- NOTE | 2017-06-27 17:56 | MYOCARDIAL PERFUSION SCAN ---
NUCLEAR STRESS TEST STUDY TITLE: One-day nuclear medicine technetium-99m Cardiolite myocardial perfusion scan. INDICATION: Chest pain. BASELINE ECHOCARDIOGRAM: Normal sinus rhythm at a ventricular rate of 60 with first degree AV block and no significant ST abnormalities. STRESS EKG: Heart rate alli from 60 to 62 representing 38% of maximum predicted heart rate. Maximum blood pressure was 131/79. There were no significant ST changes with Lexiscan. TECHNIQUE: For the stress portion of the study, 30.4 mCi of technetium-99m Cardiolite IV was injected at 9:30 a.m. on 06/27/2017. Thirty minutes following the injection, imaging of the heart was performed in multiple projections. For the rest portion of the study, 10.6 mCi of technetium-99m Cardiolite was injected IV at 7:40 a.m. One hour following injection, imaging of the heart was performed in the same projections. FINDINGS: The rotating raw images were reviewed in detail. There was minimal vertical motion, positive diaphragmatic shadow and minimal gut uptake impacting the inferior imaging border of the heart. There was no significant extracardiac pathologic uptake. The short axis, vertical long axis, horizontal long axis images were reviewed in detail. There was no visual TID. There was a subtle inferior apical, apical small largely fixed perfusion defect. There was no significant reversibility or ischemia noted. LV was noted to be mildly dilated with calculated end-diastolic volume of 155 mm. Calculated ejection fraction was 47% with mild apical hypokinesis. IMPRESSION: 1. Negative myocardial perfusion study for significant Lexiscan-induced ischemia. 2. Small apical inferior, apical fixed perfusion defect potentially representing small prior infarct versus attenuation artifact. 3. Mildly dilated LV with low normal LV function. EF 47% with apical hypokinesis. 4. Nondiagnostic stress EKG in the setting of inability to reach target heart rate.
== END 2017-06-27 17:20 | disposition home or self-care (01) ==
LOC: C.EDB 14:22 → C.2T 16:59 → ENRESERV 17:30
PROVIDERS: ADMIT Hospitalist; ATTEND Hospitalist
DX: R07.89 Other chest pain (principal); I10 Essential (primary) hypertension; F17.200 Nicotine dependence, unspecified, uncomplicated; Z95.0 Presence of cardiac pacemaker

== ENCOUNTER 2022-06-11 02:07 | Observation (INO) ==
--- NOTE | 2022-06-11 02:22 | Emergency Department Note ---
Impression & Plan Atypical chest pain The patient will be evaluated by the [facility] for further inpatient care ED Provider Note NAME: JATIN FOLEY AGE: 66 SEX: M ARRIVES VIA: Ambulance INFORMANT: Patient and EMS ED PROVIDER(S): Liyah Andrews DO CHIEF COMPLAINT: Chest pain PLAN: Disposition: The patient will be evaluated by the [facility]ist Condition: Fair MEDICAL DECISION MAKING: This is a 66-year-old male patient presents to the emergency department by EMS after waking from sleep with substernal chest discomfort. I had multiple lengthy discussions with the patient about different forms of chest pain that he has had over the past couple weeks. He describes a burning sensation in his mid sternum. He describes a pressure near his pacemaker. He describes a fluttering sensation just underneath of his left breast. He describes significant pressure and discomfort in the left lateral chest more in the axilla. In general, the patient seems to have significant anxiety about the discomfort he has been feeling in his chest. Patient does follow with cardiology. In fact, he was seen just 2 days ago and underwent echocardiogram and is supposed to follow-up with a nuclear stress test. Patient was given nitroglycerin and aspirin by EMS when they arrived at his home. He did get some relief of the chest discomfort he had that woke him from sleep. Here in the emergency department, the patient was having different discomfort in his mid sternum that was burning in nature and seem to be GI related. He was given a GI cocktail which did seem to relieve that pain as well. He had 2 negative troponins the patient's left lateral chest pain in the mid axillary region came back worse. I ordered the patient to have IV fentanyl for the pain but he refused. Patient was quite preoccupied with the thoughts of dying as a result of this chest discomfort that has gone untreated. I discussed the case with the [facility]ist and they will evaluate for further ma nagement. Triage Nursing notes reviewed and agree with them. External medical records reviewed from [facility] to include the echocardiogram result. Vital Signs: reviewed and unremarkable Differential diagnosis: GERD, anxiety, cardiac ischemia, STEMI, NSTEMI ER treatment provided: Cardiac monitoring Twelve-lead EKG GI cocktail IV fentanyl-patient refused Diagnostics independently interpreted by me: ECG: Atrial paced rhythm at a rate of [address] segment elevation or signs of ischemia. There is no ectopy. Cardiac Monitoring: Paced rhythm at a rate of 60 Laboratory studies: See below Imaging studies: As per my independent interpretation Portable chest x-ray: Emphysematous changes but no other acute findings HPI: 66/M arrives for evaluation of chest. Patient woke from sleep with subst ernal chest discomfort. He admits that he has been under significant stress worrying about his heart. He underwent a nuclear stress test 2 days ago at [facility]. He has a pacemaker in place that is approximately 10 years old. He states that the leads are made of lead and have been told at some point they could become infected so when he awoke with chest discomfort he immediately took 2 old antibiotics believing that they could possibly be infected. The patient did not go on to tell me the he believes "it mat be my time" PAST MEDICAL HISTORY:See Below PAST SURGICAL HISTORY:See Below FAMILY HISTORY:See Below SOCIAL HISTORY:See Below HOME MEDICATIONS:See list ALLERGIES:None VITALS:See Below PHYSICAL EXAMINATION: HEENT: Head - normocephalic and atraumatic Pupils are equal, round, and reactive to light. Extraocular eye muscles are intact, and sclera are anicteric. Nose - moist nasal mucosa without discharge. Mouth - moist buccal mucosa. Oropharynx is nonerythematous and there is no tonsillar exudate or edema noted. Neck: Supple; no JVD, nuchal rigidity, cervical lymphadenopathy, or auscultated bruits. Heart: Regular rate and rhythm. There is a normal S1 and S2 with no murmurs, clicks, or gallops appreciated. Lungs: Clear to auscultation bilaterally with no wheezes, rales, or rhonchi. Abdomen: Soft, completely nontender, nondistended, with good bowel sounds. There are no palpable pulsatile masses or hepatosplenomegaly. There is no guarding, rigidity, or rebound noted. Extremities: No evidence of cyanosis, clubbing, or edema. There are easily palpable peripheral pulses. Skin: warm and dry with good turgor and no rashes. ED COURSE: Times/Reassessments: 205 the patient was evaluated in room A-2. A complete history and physical was performed. A twelve-lead EKG was obtained as described above. An order was placed for continuous cardiac monitoring. The patient was in a normal sinus rhythm at a rate of 60. Patient described a burning sensation in his mid chest for which she was given a GI cocktail. This did give him some relief. I reviewed the results of the initial laboratory test with the patient. He had a second troponin drawn which was negative. Upon repeat evaluation, the patient was significant certain that there is something terribly wrong especially since his left lateral chest pain has returned. However, he was not willing to stay for any further inpatient care work-up initially. I talked him about signing out AMA. Once nursing staff spoke with the patient, he decided to stay Liyah Cha Andrews, DO Past Med/Surg History Medical History Arthralgia of pelvic region and thigh Carpal tunnel syndrome Essential hypertension GERD (gastroesophageal reflux disease) Osteoarthritis Pulmonary emphysema Shoulder joint pain Tobacco use Surgical History No significant past surgical history Social History Smoking Status: Current every day smoker Hx Alcohol Use: No Hx Substance Use: No Preferred Language: Malaysian marital status: Current Living Situation: Spouse Feels Safe at Home: Yes Allergies Allergies Allergy/AdvReac Type Severity Reaction Status Date / Time No Known Allergies Allergy Unverified 06/11/22 02:32 Home Meds Home Medications Medication Instructions Recorded Confirmed albuterol sulfate 2.5 mg/3 mL 2.5 mg inhalation Q4 PRN Wheezing 11/01/20 3 (0.083 %) solution for nebulization medical marijuana 1 dose PO UD PRN Unknown 11/01/20 06/11/22 albuterol sulfate 90 mcg/actuation 2 puff inhalation Q4 PRN Wheezing 06/11/22 06/11/22 aerosol inhaler losartan 50 mg tablet 50 mg PO DAILY 06/11/22 06/11/22 Results & Data (ED) Vital Signs Vital Signs - 24 hr 06/11/22 02:12 06/11/22 02:27 06/11/22 02:33 Temperature 36.5 C Temperature Source Oral Pulse Rate 60 60 Pulse Rate [Apical] Respiratory Rate 20 Blood Pressure 124/85 Blood Pressure [Right Arm] Blood Pressure Mean 98 Blood Pressure Mean [Right Arm] Pulse Oximetry 97 97 Oxygen Delivery Method Room Air Room Air Sepsis Recent Fever Within 48 Hours No Sepsis New/Unexplained Change in Mental Status N/A Sepsis Action Taken by Nursing No Action Required 06/11/22 03:21 06/11/22 03:00 06/11/22 05:59 Temperature Temperature Source Pulse Rate 60 Pulse Rate [Apical] 61 62 Respiratory Rate 16 18 Blood Pressure Blood Pressure [Right Arm] 112/79 112/79 Blood Pressure Mean Blood Pressure Mean [Right Arm] 90 90 Pulse Oximetry 98 99 Oxygen Delivery Method Room Air Room Air Sepsis Recent Fever Within 48 Hours Sepsis New/Unexplained Change in Mental Status Sepsis Action Taken by Nursing 06/11/22 05:02 06/11/22 06:00 Temperature Temperature Source Pulse Rate Pulse Rate [Apical] 61 60 Respiratory Rate 16 18 Blood Pressure Blood Pressure [Right Arm] 149/101 H 136/89 Blood Pressure Mean Blood Pressure Mean [Right Arm] 117 104 Pulse Oximetry 97 98 Oxygen Delivery Method Room Air Room Air Sepsis Recent Fever Within 48 Hours Sepsis New/Unexplained Change in Mental Status Sepsis Action Taken by Nursing Laboratory Data 06/11/22 02:09 06/11/22 02:09 Lab Results 06/11/22 06/11/22 06/11/22 Range/Units 02:09 02:09 02:09 WBC 5.24 (4.8-10.8) K/ul RBC 4.02 L (4.70-6.10) M/uL Hgb 13.2 L (14.0-18.0) g/dl Hct 38.0 L (42.0-52.0) % MCV 94.5 (80.0-100.0) fL MCH 32.8 (25.0-34.0) pg MCHC 34.7 (32.0-36.0) g/dL RDW Std Deviation 42.4 (36.4-46.3) fL RDW Coeff of Mila 12.2 (11.5-14.5) % Plt Count 159 (130-400) K/uL MPV 10.4 (9.4-12.4) fL Immature Gran % (Auto) 0.2 % Neut % (Auto) 55.7 % Lymph % (Auto) 33.0 % [place] % (Auto) 8.0 % Eos % (Auto) 2.5 % Baso % (Auto) 0.6 % Neut # (Auto) 2.92 (1.40-6.50) K/uL Lymph # (Auto) 1.73 (1.2-3.4) K/uL [place] # (Auto) 0.42 (0.11-0.59) K/uL Eos # (Auto) 0.13 (0-0.50) K/uL Baso # (Auto) 0.03 (0-0.2) K/uL Immature Gran # (Auto) 0.01 (0.01-0.20) K/uL APTT 28.8 (21.0-31.0) Seconds PTT Ratio 1.0 Sodium 140 (136-145) mmol/L Potassium 3.7 (3.5-5.1) mmol/L Chloride 109 H (98-107) mmol/L Carbon Dioxide 24 (21-32) mmol/L Anion Gap 7 (3-11) BUN 16 (6-23) mg/dl Creatinine 0.91 (0.6-1.4) mg/dl Est Cr Clr Drug Dosing 95.3 ml/min Est GFR ( Amer) 102.9 ml/min Est GFR (Non-Af Amer) 88.8 ml/min BUN/Creatinine Ratio 17.6 (10-20) Glucose 112 H (70-99(Fasting)) mg/dl Calcium 8.6 (8.6-10.3) mg/dl Magnesium (1.7-2.4) mg/dl Total Bilirubin 0.4 (0.2-1.0) mg/dl AST 31 (13-39) U/L ALT 17 (7-52) U/L Alkaline Phosphatase 71 (34-104) U/L Troponin I High Sens 6.7 (0-20) pg/ml Total Protein 6.6 (6.0-8.3) gm/dl Albumin 4.1 (3.4-5.0) gm/dl Globulin 2.5 (2.5-4.0) gm/dl Albumin/Globulin Ratio 1.6 (0.9-2) Lipase 52 (11-82) U/L SARS-CoV-2, RNA, NAAT (NEGATIVE) 06/11/22 06/11/22 Range/Units 03:48 05:02 WBC (4.8-10.8) K/ul RBC (4.70-6.10) M/uL Hgb (14.0-18.0) g/dl Hct (42.0-52.0) % MCV (80.0-100.0) fL MCH (25.0-34.0) pg MCHC (32.0-36.0) g/dL RDW Std Deviation (36.4-46.3) fL RDW Coeff of Mila (11.5-14.5) % Plt Count (130-400) K/uL MPV (9.4-12.4) fL Immature Gran % (Auto) % Neut % (Auto) % Lymph % (Auto) % [place] % (Auto) % Eos % (Auto) % Baso % (Auto) % Neut # (Auto) (1.40-6.50) K/uL Lymph # (Auto) (1.2-3.4) K/uL [place] # (Auto) (0.11-0.59) K/uL Eos # (Auto) (0-0.50) K/uL Baso # (Auto) (0-0.2) K/uL Immature Gran # (Auto) (0.01-0.20) K/uL APTT (21.0-31.0) Seconds PTT Ratio Sodium (136-145) mmol/L Potassium (3.5-5.1) mmol/L Chloride (98-107) mmol/L Carbon Dioxide (21-32) mmol/L Anion Gap (3-11) BUN (6-23) mg/dl Creatinine (0.6-1.4) mg/dl Est Cr Clr Drug Dosing ml/min Est GFR ( Amer) ml/min Est GFR (Non-Af Amer) ml/min BUN/Creatinine Ratio (10-20) Glucose (70-99(Fasting)) mg/dl Calcium (8.6-10.3) mg/dl Magnesium 2.1 (1.7-2.4) mg/dl Total Bilirubin (0.2-1.0) mg/dl AST (13-39) U/L ALT (7-52) U/L Alkaline Phosphatase (34-104) U/L Troponin I High Sens 5.7 (0-20) pg/ml Total Protein (6.0-8.3) gm/dl Albumin (3.4-5.0) gm/dl Globulin (2.5-4.0) gm/dl Albumin/Globulin Ratio (0.9-2) Lipase (11-82) U/L SARS-CoV-2, RNA, NAAT NEGATIVE (NEGATIVE) Administered Medications Lactated Ringer's (Lr) 1,000 mls @ 75 mls/hr IV .[id number] STA Stop: 06/11/22 18:34 Last Admin: 06/11/22 05:34 Dose: 75 mls/hr Documented By: SYLVIA Discontinued Medications Al Hydrox/Mg Hydrox/Simethicone (Gi Cocktail Ed Use) 1 dose PO ONE ONE Stop: 06/11/22 03:26 Last Admin: 06/11/22 03:31 Dose: 1 dose Documented By: SYLVIA Fentanyl Citrate (Fentanyl Citrate Pf 100 Mcg/2 Ml Vial) 100 mcg IV NOW STA Stop: 06/11/22 04:57 Last Admin: 06/11/22 05:10 Dose: Not Given Documented By: SYLVIA Ondansetron HCl (Ondansetron Inj 2 Mg/Ml 2 Ml Vial) 4 mg IV NOW STA Stop: 06/11/22 04:57 Last Admin: 06/11/22 05:10 Dose: Not Given Documented By: SYLVIA Discharge Plan Visit Data Chief Complaint: Chest Pain Stated Complaint: Chest Pain Radiating into Shoulder ED Provider: Liyah Andrews Discharge Problem: Atypical chest pain Forms Stand Alone Forms: [employer] Prescriptions Prescriptions: No Action albuterol sulfate 2.5 mg /3 mL (0.083 %) solution for nebulization 2.5 mg inhalation Q4 PRN (Reason: Wheezing) medical marijuana 1 dose PO UD PRN (Reason: Unknown) losartan 50 mg tablet 50 mg PO DAILY albuterol sulfate 90 mcg/actuation HFA aerosol inhaler 2 puff INHALATION Q4 PRN (Reason: Wheezing) Referrals Referrals: Fior Ruth DO [Physician] -
[2022-06-11 02:54] LABS: Basophils # (auto) 0.03 K/uL (0-0.2); Basophils % (auto) 0.6 %; Eosinophils # (auto) 0.13 K/uL (0-0.50); Eosinophils % (auto) 2.5 %; Hemoglobin 13.2 g/dl (14.0-18.0); Immature Granulocytes # (auto) 0.01 K/uL (0.01-0.20); Immature Granulocytes % (auto) 0.2 %; Lymphocytes # (auto) 1.73 K/uL (1.2-3.4); Mean Corpuscular Hemoglobin 32.8 pg (25.0-34.0); Mean Corpuscular Hgb Conc 34.7 g/dL (32.0-36.0); Mean Corpuscular Volume 94.5 fL (80.0-100.0); Mean Platelet Volume 10.4 fL (9.4-12.4); Monocytes # (auto) 0.42 K/uL (0.11-0.59); Neutrophils # (auto) 2.92 K/uL (1.40-6.50); Neutrophils % (auto) 55.7 %; Platelet Count 159 K/uL (130-400); RDW Coefficient of Variation 12.2 % (11.5-14.5); RDW Standard Deviation 42.4 fL (36.4-46.3); Red Blood Count 4.02 M/uL (4.70-6.10); White Blood Count 5.24 K/ul (4.8-10.8)
[2022-06-11 03:02] LABS: Albumin Globulin Ratio 1.6 (0.9-2); Albumin Level 4.1 gm/dl (3.4-5.0); BUN Creatinine Ratio 17.6 (10-20); Bilirubin,Total 0.4 mg/dl (0.2-1.0); Calcium 8.6 mg/dl (8.6-10.3); Creatinine Clr Calc Pharmacy 95.3 ml/min; Est GFR (African American) 102.9 ml/min; Est GFR (Non-African American) 88.8 ml/min; Globulin 2.5 gm/dl (2.5-4.0); Potassium 3.7 mmol/L (3.5-5.1); Total Protein 6.6 gm/dl (6.0-8.3)
[2022-06-11 03:06] LABS: Troponin I High Sensitivity 6.7 pg/ml (0-20)
[2022-06-11] MEDS ORDERED: GI COCKTAIL ED USE PO ONE (03:25)
[2022-06-11 04:24] LABS: Troponin I High Sensitivity 5.7 pg/ml (0-20)
[2022-06-11] MEDS: fentaNYL citrate PF 100 MCG/2 ML VIAL IV STA ×2 (05:02→05:10)
[2022-06-11] MEDS: ONDANSETRON INJ 2 MG/ML 2 ML VIAL IV STA ×2 (05:02→05:10)
[2022-06-11] MEDS ORDERED: LACTATED RINGER'S 1,000 ML IV STA (05:15)
[2022-06-11 05:38] LABS: Magnesium 2.1 mg/dl (1.7-2.4)
[2022-06-11 06:10] LABS: Partial Thromboplastin Time 28.8 Seconds (21.0-31.0)
--- NOTE | 2022-06-11 06:48 | History & Physical Report ---
Date of Service June 11, 2022 Assessment & Plan (1) Chest pain: Plan: Rule out ACS given relief with nitroglycerin Abdominal pain possibly uncontrolled GERD Patient not sure if abdominal pain connected to chest pain. chronic diastolic heart failure (EF 55 to 59%, TTE 2022), patient euvolemic symptomatic bradycardia status post PPM valvular heart disease (mild MR/TR) atrial septal aneurysm with moderate size PFO, VSD noted on recent outpatient TTE hypertension, stable asthma, not in exacerbation chronic anemia, hemoglobin at baseline Hyperglycemia likely prediabetes, hemoglobin A1c of 5.13 April 2022 ongoing tobacco abuse OBS PCU Cardiology consult Re: Chest pain Pepcid for uncontrolled GERD, PPI if without improvement Patient counseled regarding adverse effects of NSAIDs gastrointestinal mucosa. CT abdomen pelvis Re: Abdominal pain N.p.o. until CT abdomen pelvis results known Nicotine gum as needed DVT prophylaxis. Lovenox subcu if no bleed on CT abdomen pelvis Full code Text document was generated using [employer] voice recognition software. It may contain grammatical or spelling errors. Kindly contact undersigned for clarification of any documentation item in question. History of Present Illness Chief Complaint: Chest pain Primary Care Provider: DENAE Lou History obtained from patient, family, and records. Medical history significant for chronic diastolic heart failure (EF 55 to 59%, TTE 2022), symptomatic bradycardia status post PPM, valvular heart disease (mild MR/TR), atrial septal aneurysm with moderate size PFO, VSD, hypertension, asthma, GERD, chronic anemia (baseline hemoglobin of 13), ongoing tobacco abuse. Last confinement 2017 for chest pain. Stress test negative for inducible ischemia. Patient switched to [facility] providers 3 months ago. Patient seen by [facility] cardiology provider for the first time 2 months ago. Patient presenting with symptoms of progressive shortness of breath with and without exertion. Patient started on aspirin due to family history of cardiovascular disease. Outpatient TTE (06/2022) showed EF 55 to 59%. Borderline posterior mitral leaflet prolapse. Mild MR/mild TR. Atrial septal aneurysm with moderate size PFO noted. Congenital perimembranous ventricular septal defect with small [id number] in traventricular shunt. Consideration for outpatient nuclear stress test to rule out ischemic cause of progressive shortness of breath last chest discomfort as per documentation. 2 weeks ago, patient noted transient left-sided chest pain symptoms. A week later, patient noted achy abdominal discomfort and transient dark stools which he attributes to Pepto-Bismol intake. Patient admits to taking [id number] NSAIDs for chronic pain, about 6 tabs daily. Patient woke up last night with left-sided chest pain going to the shoulder. Patient not sure if belly pain connected to chest pain. Improved symptoms with nitroglycerin. Patient uncomfortable going home from the ER. Medical History as above Surgical History : PPM, shoulder surgery, hip surgery Family History : Heart disease Personal/Social history : Few cigarettes a day, no EtOH intake, fast food restaurant employee Allergies Allergy/AdvReac Type Severity Reaction Status Date / Time No Known Allergies Allergy Unverified 06/11/22 02:32 Home Medications Medication Instructions Recorded Confirmed Type albuterol sulfate 2.5 mg/3 mL 2.5 mg inhalation Q4 PRN Wheezing 11/01/20 06/11/22 History (0.083 %) solution for nebulization medical marijuana 1 dose PO UD PRN Unknown 11/01/20 06/11/22 History albuterol sulfate 90 mcg/actuation 2 puff inhalation Q4 PRN Wheezing 06/11/22 06/11/22 History aerosol inhaler losartan 50 mg tablet 50 mg PO DAILY 06/11/22 06/11/22 History Past Med/Surg History Medical History Arthralgia of pelvic region and thigh Carpal tunnel syndrome Essential hypertension GERD (gastroesophageal reflux disease) Osteoarthritis Pulmonary emphysema Shoulder joint pain Tobacco use Surgical History No significant past surgical history Social History Smoking Status: Current every day smoker Hx Alcohol Use: No Hx Substance Use: No Preferred Language: Tuvaluan marital status: Current Living Situation: Spouse Feels Safe at Home: Yes Review of Systems Review of Systems: As per HPI, all other systems reviewed and negative Physical Exam Physical Exam: GENERAL: Slightly uncomfortable, anxious, no respiratory distress SKIN: Normal color, warm HEENT: Alopecia, pink palpebral conjunctivae, no ptosis, dry buccal mucosa NECK : Supple, no tenderness CHEST : CTA, no tenderness HEART : RRR, systolic murmur best heard over left sternal border ABDOMEN: Some distention, minimal epigastric tenderness EXTREMITIES : No LE swelling/tenderness, no other conspicuous deformities noted NEUROLOGIC : Coherent, no facial asymmetry, no other gross focality Results & Data Results & Data Vital Signs (Past 12 Hours) Vital Signs Temp Pulse Pulse Resp BP BP Pulse Ox 06/11/22 06:00 60 18 136/89 98 06/11/22 05:02 61 16 149/101 H 97 06/11/22 05:59 60 06/11/22 03:00 62 18 112/79 99 06/11/22 03:21 61 16 112/79 98 06/11/22 02:33 97 06/11/22 02:27 36.5 C 60 20 124/85 97 06/11/22 02:12 60 O2 Del Method 06/11/22 06:00 Room Air 06/11/22 05:02 Room Air 06/11/22 05:59 06/11/22 03:00 Room Air 06/11/22 03:21 Room Air 06/11/22 02:33 Room Air 06/11/22 02:27 Room Air 06/11/22 02:12 Laboratory Results Laboratory Results WBC 5.24 K/ul (4.8-10.8) 06/11/22 02:09 RBC 4.02 M/uL (4.70-6.10) L 06/11/22 02:09 Hgb 13.2 g/dl (14.0-18.0) L 06/11/22 02:09 Hct 38.0 % (42.0-52.0) L 06/11/22 02:09 MCV 94.5 fL (80.0-100.0) 06/11/22 02:09 MCH 32.8 pg (25.0-34.0) 06/11/22 02:09 MCHC 34.7 g/dL (32.0-36.0) 06/11/22 02:09 RDW Std Deviation 42.4 fL (36.4-46.3) 06/11/22 02:09 RDW Coeff of Mila 12.2 % (11.5-14.5) 06/11/22 02:09 Plt Count 159 K/uL (130-400) 06/11/22 02:09 MPV 10.4 fL (9.4-12.4) 06/11/22 02:09 Immature Gran % (Auto) 0.2 % 06/11/22 02:09 Neut % (Auto) 55.7 % 06/11/22 02:09 Lymph % (Auto) 33.0 % 06/11/22 02:09 Harding % (Auto) 8.0 % 06/11/22 02:09 Eos % (Auto) 2.5 % 06/11/22 02:09 Baso % (Auto) 0.6 % 06/11/22 02:09 Neut # (Auto) 2.92 K/uL (1.40-6.50) 06/11/22 02:09 Lymph # (Auto) 1.73 K/uL (1.2-3.4) 06/11/22 02:09 Harding # (Auto) 0.42 K/uL (0.11-0.59) 06/11/22 02:09 Eos # (Auto) 0.13 K/uL (0-0.50) 06/11/22 02:09 Baso # (Auto) 0.03 K/uL (0-0.2) 06/11/22 02:09 Immature Gran # (Auto) 0.01 K/uL (0.01-0.20) 06/11/22 02:09 APTT 28.8 Seconds (21.0-31.0) 06/11/22 02:09 PTT Ratio 1.0 06/11/22 02:09 Sodium 140 mmol/L (136-145) 06/11/22 02:09 Potassium 3.7 mmol/L (3.5-5.1) 06/11/22 02:09 Chloride 109 mmol/L (98-107) H 06/11/22 02:09 Carbon Dioxide 24 mmol/L (21-32) 06/11/22 02:09 Anion Gap 7 (3-11) 06/11/22 02:09 BUN 16 mg/dl (6-23) 06/11/22 02:09 Creatinine 0.91 mg/dl (0.6-1.4) 06/11/22 02:09 Est Cr Clr Drug Dosing 95.3 ml/min 06/11/22 02:09 Est GFR ( Amer) 102.9 ml/min 06/11/22 02:09 Est GFR (Non-Af Amer) 88.8 ml/min 06/11/22 02:09 BUN/Creatinine Ratio 17.6 (10-20) 06/11/22 02:09 Glucose 112 mg/dl (70-99(Fasting)) H 06/11/22 02:09 Calcium 8.6 mg/dl (8.6-10.3) 06/11/22 02:09 Magnesium 2.1 mg/dl (1.7-2.4) 06/11/22 03:48 Total Bilirubin 0.4 mg/dl (0.2-1.0) 06/11/22 02:09 AST 31 U/L (13-39) 06/11/22 02:09 ALT 17 U/L (7-52) 06/11/22 02:09 Alkaline Phosphatase 71 U/L (34-104) 06/11/22 02:09 Troponin I High Sens 5.7 pg/ml (0-20) 06/11/22 03:48 Total Protein 6.6 gm/dl (6.0-8.3) 06/11/22 02:09 Albumin 4.1 gm/dl (3.4-5.0) 06/11/22 02:09 Globulin 2.5 gm/dl (2.5-4.0) 06/11/22 02:09 Albumin/Globulin Ratio 1.6 (0.9-2) 06/11/22 02:09 Lipase 52 U/L (11-82) 06/11/22 02:09 SARS-CoV-2, RNA, NAAT NEGATIVE (NEGATIVE) 06/11/22 05:02 Diagnostic Findings Chest x-ray as per my interpretation atelectasis, PPM noted EKG as per my interpretation : Rate 60, paced rhythm
[2022-06-11] MEDS ORDERED: oxyCODONE HCL IR 5 MG TAB (IMMEDIATE RELEASE) PO STA (06:49)
[2022-06-11] MEDS ORDERED: MoRPHine SULFATE 2 MG/ML CARP IV PRN (06:53)
[2022-06-11] MEDS ORDERED: LORazepam 0.5 MG TAB PO PRN (06:53)
[2022-06-11] MEDS ORDERED: oxyCODONE HCL IR 5 MG TAB (IMMEDIATE RELEASE) PO PRN (06:53)
[2022-06-11] MEDS ORDERED: PROMETHAZINE HCL 12.5 MG in SODIUM CHLORIDE 0.9% 50 ML IV PRN (06:53)
[2022-06-11] MEDS ORDERED: OPTIRAY 320 100ml IV ONE (07:20)
--- NOTE | 2022-06-11 07:32 | CT Scan Report ---
CT OF THE ABDOMEN AND PELVIS WITH CONTRAST CLINICAL HISTORY: Abdominal pain. COMPARISON STUDY: None. TECHNIQUE: Following IV administration of 88 mL of Optiray, axial images of the abdomen and pelvis we re obtained from the lung bases to the proximal femurs. Images were reviewed in the axial, sagittal, and coronal planes. IV contrast was administered without complication. Automated exposure control wa s utilized for the study. A dose lowering technique was utilized adhering to the principles of ALARA . CT DOSE: 554.14 mGy.cm FINDINGS: Pacer leads are partially imaged. There is mild cardiomegaly. Lung bases are unremarkable. No pneumatosis, free air or portal venous gas is present. Note is made of subtle stranding adjacent t o the lesser curvature of the stomach shown on axial image 89 of 466. There is a possible subtle ninfa cent gastric outpouching on axial image 99 which could reflect an ulcer. There is no extraluminal gas . Liver, spleen, adrenal glands and pancreas are unremarkable. Water attenuation bilateral renal lesi ons reflect cysts. A few subcentimeter lesions are too small to characterize. There is no hydronephro sis. There is no biliary or pancreatic ductal dilatation. No peripancreatic or pericholecystic strand ing is present. There is no evidence for a bowel obstruction. The appendix is normal. There is no fred e fluid. Major vasculature is patent. There is mild plaque of the abdominal aorta and branch vessels. No lymphadenopathy. There are no acute fracture. Severe left hip osteoarthritis is noted. IMPRESSION: 1. Subtle stranding adjacent to the lesser curvature of the stomach with a possible adjacent gastric ulcer. The findings suggest peptic ulcer disease. No extraluminal gas. 2. No bowel obstruction. No bowel wall thickening. Normal appendix. 3. Multiple renal cysts. ACT 112: Negative or not required by law. Electronically signed by: Juan Kirkland M.D. 06/11/2022 7:30 AM
[2022-06-11] MEDS ORDERED: ALBUT/IPRATROP 3MG/0.5MG NEB 3 ML VIAL NEB PRN (07:36)
--- NOTE | 2022-06-11 07:36 | XRay Report ---
XR chest 1V portable CLINICAL HISTORY: Chest pain, nonspecific COMPARISON STUDY: Chest radiograph and chest CT February 07, 2020. FINDINGS: A dual-lead left subclavian pacemaker is in place. Cardiomediastinal silhouette is stable. There is no pneumothorax or pleural effusion. Upper lobe predominant emphysema is present. There is n o consolidation. There is no evidence for pulmonary edema. IMPRESSION: No acute cardiopulmonary findings. Emphysema. ACT 112: Negative or not required by law. Electronically signed by: Juan Kirkland M.D. 06/11/2022 7:34 AM
[2022-06-11] MEDS ORDERED: NITROGLYCERIN SL 0.4 MG/TAB TAB SL PRN (08:01)
[2022-06-11] MEDS ORDERED: ACETAMINOPHEN 325 MG TAB PO PRN (08:01)
[2022-06-11] MEDS ORDERED: ENOXAPARIN INJ 40 MG/0.4 ML SYR SQ SCH (09:00)
[2022-06-11] MEDS ORDERED: FAMOTIDINE 10 MG TABLET PO SCH (09:00)
--- NOTE | 2022-06-11 09:00 | Hospitalist Progress Note ---
Date of Service June 11, 2022 Assessment & Plan (1) PUD (peptic ulcer disease): Plan: seen on CT and patient is clinically describing this. Evidence of bleeding intermittently given h/o melena reported last week. Heavy NSAID use and tobacco use ongoing. Want to avoid narcotics given history of heavy use in the past. Avoid NSAids. For pain will try carafate, Pepcid PRN and daily protonix. Can also try Maalox if not effective. Plan for EGD in am. Hemodynamically stable. Moving him off telemetry. (2) Shoulder joint pain: Plan: Recommend avoiding NSAIDs and moving to Tylenol PRN instead. (3) Tobacco use: (4) Presence of cardiac pacemaker: Plan: 2/2 symptomatic bradycardia in 2003. Follows with cardiology as outpatient. (5) VSD (ventricular septal defect): Plan: structural change noted on echo. Not hemodynamically significant. (6) PFO (patent foramen ovale): Plan: structural change noted on echo. SCDs/ambulation DVT chemoprophylaxis relatively contraindicated given the likelihood of an ulcer with recent report of melena. Full Code Dispo- to home after EGD based on findings. Transfer to medical floor. HD stable and ACS ruled out overnight. Susan Salcedo DO [facility] Hospitalist Admission and Anticipated Discharge Date Admission Date: June 11, 2022 Subjective 66 yo M presented with atypical chest/epigastric pain Workkup reveals no ACS, with evidence of stomach ulcer Patient uses 5-6 NSAID tabs-mix of Aleve and Ibuprofen for shoulder pains He reports black stool 1 week ago and some difficulty swallowing no weight loss intermittent bloating in stomach and pain-currently controlled h/o narcotic use in the past and want to avoid this. Review of Systems Review of Systems: All systems were reviewed and negative except as indicated on subjective above. Physical Exam Physical Exam: CONSTITUTIONAL: WNWD, vitals as above, generally well-appearing, NAD EYES: normal conjunctivae, no scleral icterus ENT: external ear and nose normal, MMM NECK: trachea midline RESPIRATORY: clear to auscultation bilaterally, no crackles, rales or wheezes, normal respiratory effort CARDIOVASCULAR: regular rate and rhythm, S1 and 2 heard without murmurs, gallops or rubs, no JVD, no peripheral edema CHEST: inspection of chest was normal GASTROINTESTINAL: soft, nontender, ND, no guarding MUSCULOSKELETAL: strength 5/5 throughout, head is normocephalic and atraumatic, SKIN: warm and dry, NEUROLOGIC: CN 2-12 grossly intact, no sensory deficit, normal cognition, normal speech, no tremor PSYCHIATRIC: alert cooperative and oriented to person, place and time. Euthymic mood, makes good eye contact, language grossly intact, recent and remote memory grossly intact. Results & Data Results & Data Vital Signs (Past 12 Hours) Vital Signs Temp Pulse Pulse Resp BP BP Pulse Ox 06/11/22 07:21 63 20 129/87 98 06/11/22 06:00 60 18 136/89 98 06/11/22 05:02 61 16 149/101 H 97 06/11/22 05:59 60 06/11/22 03:00 62 18 112/79 99 06/11/22 03:21 61 16 112/79 98 06/11/22 02:33 97 06/11/22 02:27 36.5 C 60 20 124/85 97 06/11/22 02:12 60 O2 Del Method 06/11/22 07:21 Room Air 06/11/22 06:00 Room Air 06/11/22 05:02 Room Air 06/11/22 05:59 06/11/22 03:00 Room Air 06/11/22 03:21 Room Air 06/11/22 02:33 Room Air 06/11/22 02:27 Room Air 06/11/22 02:12 Laboratory Results Short CBC 06/11/22 Range/Units 02:09 WBC 5.24 (4.8-10.8) K/ul Hgb 13.2 L (14.0-18.0) g/dl Hct 38.0 L (42.0-52.0) % Plt Count 159 (130-400) K/uL BMP 06/11/22 02:09 Sodium 140 Potassium 3.7 Chloride 109 H Carbon Dioxide 24 BUN 16 Creatinine 0.91 Glucose 112 H Calcium 8.6 Liver Function 06/11/22 Range/Units 02:09 Total Bilirubin 0.4 (0.2-1.0) mg/dl AST 31 (13-39) U/L ALT 17 (7-52) U/L Alkaline Phosphatase 71 (34-104) U/L Albumin 4.1 (3.4-5.0) gm/dl Diagnostic Findings Chest X-Ray 06/11/22 02:15 XR chest 1V portable CLINICAL HISTORY: Chest pain, nonspecific COMPARISON STUDY: Chest radiograph and chest CT February 07, 2020. FINDINGS: A dual-lead left subclavian pacemaker is in place. Cardiomediastinal silhouette is stable. There is no pneumothorax or pleural effusion. Upper lobe predominant emphysema is present. There is no consolidation. There is no evidence for pulmonary edema. IMPRESSION: No acute cardiopulmonary findings. Emphysema. ACT 112: Negative or not required by law. Electronically signed by: Juan Kirkland M.D. 06/11/2022 7:34 AM Abdomen/Pelvis CT 06/11/22 06:48 CT OF THE ABDOMEN AND PELVIS WITH CONTRAST CLINICAL HISTORY: Abdominal pain. COMPARISON STUDY: None. TECHNIQUE: Following IV administration of 88 mL of Optiray, axial images of the abdomen and pelvis were obtained from the lung bases to the proximal femurs. Images were reviewed in the axial, sagittal, and coronal planes. IV contrast was administered without complication. Automated exposure control was utilized for the study. A dose lowering technique was utilized adhering to the principles of ALARA. CT DOSE: 554.14 mGy.cm FINDINGS: Pacer leads are partially imaged. There is mild cardiomegaly. Lung bases are unremarkable. No pneumatosis, free air or portal venous gas is present. Note is made of subtle stranding adjacent to the lesser curvature of the stomach shown on axial image 89 of 466. There is a possible subtle adjacent gastric outpouching on axial image 99 which could reflect an ulcer. There is no extraluminal gas. Liver, spleen, adrenal glands and pancreas are unremarkable. Water attenuation bilateral renal lesions reflect cysts. A few subcentimeter lesions are too small to characterize. There is no hydronephrosis. There is no biliary or pancreatic ductal dilatation. No peripancreatic or pericholecystic stranding is present. There is no evidence for a bowel obstruction. The appendix is normal. There is no free fluid. Major vasculature is patent. There is mild plaque of the abdominal aorta and branch vessels. No lymphadenopathy. There are no acute fracture. Severe left hip osteoarthritis is noted. IMPRESSION: 1. Subtle stranding adjacent to the lesser curvature of the stomach with a possible adjacent gastric ulcer. The findings suggest peptic ulcer disease. No extraluminal gas. 2. No bowel obstruction. No bowel wall thickening. Normal appendix. 3. Multiple renal cysts. ACT 112: Negative or not required by law. Electronically signed by: Juan Kirkland M.D. 06/11/2022 7:30 AM Medications Administered Current Inpatient Medications Acetaminophen (Acetaminophen 325 Mg Tab) 650 mg PO Q4H PRN PRN Reason: Pain or Fever Stop: 07/11/22 08:00 Albuterol (Albut/Ipratrop 3mg/0.5mg Neb 3 Ml Vial) 3 ml NEB Q2H PRN; Protocol PRN Reason: Wheezing Stop: 07/11/22 07:35 Aspirin (Aspirin 81 Mg Ectab) 81 mg PO QAM GHAZALA Stop: 07/12/22 08:59 Lactated Ringer's (Lr) 1,000 mls @ 75 mls/hr IV .[id number] STA Stop: 06/11/22 18:34 Last Admin: 06/11/22 05:34 Dose: 75 mls/hr Promethazine HCl 12.5 mg/ (Sodium Chloride) 50.5 mls @ 202 mls/hr IV Q6H PRN PRN Reason: Nausea And Vomiting Stop: 07/11/22 06:52 Lorazepam (Lorazepam 0.5 Mg Tab) 0.5 mg PO TID PRN PRN Reason: Anxiety Stop: 07/11/22 06:52 Losartan Potassium (Losartan Potassium 50 Mg Tab) 50 mg PO DAILY GHAZALA Stop: 07/11/22 08:59 Morphine Sulfate (Morphine Sulfate 2 Mg/Ml Carp) 2 mg IV Q4H PRN PRN Reason: Pain Stop: 06/25/22 06:52 Nitroglycerin (Nitroglycerin Sl 0.4 Mg/Tab Tab) 0.4 mg SL UD PRN PRN Reason: Chest Pain Stop: 07/11/22 08:00 Oxycodone HCl (Oxycodone Hcl Ir 5 Mg Tab (Immediate Release)) 5 mg PO Q4H PRN PRN Reason: Pain Stop: 06/25/22 06:52 Pantoprazole Sodium (Pantoprazole 40 Mg Tab) 40 mg PO DAILY GHAZALA Stop: 07/11/22 08:59
[2022-06-11] MEDS: PANTOprazole 40 MG TAB PO SCH (09:18)
[2022-06-11] MEDS: LOSARTAN POTASSIUM 50 MG TAB PO SCH (09:18)
--- NOTE | 2022-06-11 10:28 | Gastrointestinal Consultation ---
Date of Consultation June 11, 2022 Assessment & Plan (1) Atypical chest pain: Pleasant male with left upper abdominal pain and apparent ulcer on CT scan. Will plan for EGD tomorrow. Procedure and risks discussed with patient. He agrees History of Present Illness Reason for Consultation: abdominal pain Attending Physician: Susan Salcedo DO History of Present Illness 66 year old man with a cardiac history/pacemaker who is admitted with lower chest/upper abdominal pain. He goes round about with his history so it is difficult to get clear history from him. He has had pain on his left side radiating to the midline. He feels a "knot" and bloated when it occurs. This has been going on for two weeks or so. It would radiate into his left arm so he came to ER concerned it was from his heart. He does not vomit. He denies NSAIDs other than topical aleve. He had an EGD attempted years ago just with cetacaine and couldn't do it. Has not had colonoscopy because he would rather put his galilea in [facility]. CT on admit showed apparent gastric ulcer on lesser curvature of stomach Allergies Allergy/AdvReac Type Severity Reaction Status Date / Time No Known Allergies Allergy Unverified 06/11/22 02:32 Home Medications Medication Instructions Recorded Confirmed Type albuterol sulfate 2.5 mg/3 mL 2.5 mg inhalation Q4 PRN Wheezing 11/01/20 06/11/22 History (0.083 %) solution for nebulization medical marijuana 1 dose PO UD PRN Unknown 11/01/20 06/11/22 History albuterol sulfate 90 mcg/actuation 2 puff inhalation Q4 PRN Wheezing 06/11/22 06/11/22 History aerosol inhaler losartan 50 mg tablet 50 mg PO DAILY 06/11/22 06/11/22 History Patient History Medical History Arthralgia of pelvic region and thigh Carpal tunnel syndrome Essential hypertension GERD (gastroesophageal reflux disease) Osteoarthritis Pulmonary emphysema Shoulder joint pain Tobacco use Surgical History No significant past surgical history Social History Smoking Status: Current every day smoker Cigarettes Per Day: 6; Second Hand Exposure: No; Do You Dip or Chew Tobacco: No; Tobacco Cessation Education Requested by Patient: No Hx Alcohol Use: No Hx Substance Use: Yes Last Used Substance: Days (ago) Last Used Substance Other:: yesterday Substance Use Type Other:: patient state he has a card Preferred Language: Filipino Beliefs That Will Affect Care: None marital status: Current Living Situation: Significant Other Feels Safe at Home: Yes Safety Concerns: Feels Safe At This Time Assistive Devices: Glasses Assistive Devices Comment: reading glasses Review of Systems Review of Systems: All systems reviewed & are unremarkable except as noted in HPI & below Physical Exam Constitutional: WD/WN, vitals as above no acute distress Eyes: PERRL, conjunctivae normal, anicteric sclerae ENMT: external ear and nose normal, oropharynx normal Neck: trachea midline, no thyromegaly Respiratory: normal respiratory effort, lungs clear to auscultation Cardiovascular: RRR, no murmur, no edema Gastrointestinal (Abdomen): Inspection/Auscultation: abdomen normal to inspection and normal bowel sounds Percussion/Palpation: + abdomen tender (upper abdomen to the left of the midline) and abdomen soft Musculoskeletal: Extremities: no cyanosis and no clubbing Skin: no rashes, warm and dry Neurologic: PERRL, EOMI, accommodation nl, no face palsy, no dysarthria Psychiatric: Orientation: alert and oriented x 3 Results & Data Vital Signs (Past 12 Hours) Vital Signs Temp Pulse Pulse Pulse Resp BP BP 06/11/22 08:00 36.4 C L 61 14 153/98 H 06/11/22 08:00 36.4 C L 61 14 153/98 H 06/11/22 07:21 63 20 129/87 06/11/22 06:00 60 18 136/89 06/11/22 05:02 61 16 149/101 H 06/11/22 05:59 60 06/11/22 03:00 62 18 112/79 06/11/22 03:21 61 16 112/79 06/11/22 02:33 06/11/22 02:27 36.5 C 60 20 124/85 06/11/22 02:12 60 Pulse Ox O2 Del Method 06/11/22 08:00 98 Room Air 06/11/22 08:00 98 Room Air 06/11/22 07:21 98 Room Air 06/11/22 06:00 98 Room Air 06/11/22 05:02 97 Room Air 06/11/22 05:59 06/11/22 03:00 99 Room Air 06/11/22 03:21 98 Room Air 06/11/22 02:33 97 Room Air 06/11/22 02:27 97 Room Air 06/11/22 02:12 Laboratory Results 06/11/22 06/11/22 06/11/22 Range/Units 06:31 05:02 03:48 WBC (4.8-10.8) K/ul RBC (4.70-6.10) M/uL Hgb (14.0-18.0) g/dl Hct (42.0-52.0) % MCV (80.0-100.0) fL MCH (25.0-34.0) pg MCHC (32.0-36.0) g/dL RDW Std Deviation (36.4-46.3) fL RDW Coeff of Mila (11.5-14.5) % Plt Count (130-400) K/uL MPV (9.4-12.4) fL Immature Gran % (Auto) % Neut % (Auto) % Lymph % (Auto) % Preble % (Auto) % Eos % (Auto) % Baso % (Auto) % Neut # (Auto) (1.40-6.50) K/uL Lymph # (Auto) (1.2-3.4) K/uL Preble # (Auto) (0.11-0.59) K/uL Eos # (Auto) (0-0.50) K/uL Baso # (Auto) (0-0.2) K/uL Immature Gran # (Auto) (0.01-0.20) K/uL APTT (21.0-31.0) Seconds PTT Ratio Sodium (136-145) mmol/L Potassium (3.5-5.1) mmol/L Chloride (98-107) mmol/L Carbon Dioxide (21-32) mmol/L Anion Gap (3-11) BUN (6-23) mg/dl Creatinine (0.6-1.4) mg/dl Est Cr Clr Drug Dosing ml/min Est GFR ( Amer) ml/min Est GFR (Non-Af Amer) ml/min BUN/Creatinine Ratio (10-20) Glucose (70-99(Fasting)) mg/dl Calcium (8.6-10.3) mg/dl Magnesium 2.1 (1.7-2.4) mg/dl Total Bilirubin (0.2-1.0) mg/dl AST (13-39) U/L ALT (7-52) U/L Alkaline Phosphatase (34-104) U/L Troponin I High Sens 6.0 5.7 (0-20) pg/ml Total Protein (6.0-8.3) gm/dl Albumin (3.4-5.0) gm/dl Globulin (2.5-4.0) gm/dl Albumin/Globulin Ratio (0.9-2) Lipase (11-82) U/L SARS-CoV-2, RNA, NAAT NEGATIVE (NEGATIVE) 06/11/22 06/11/22 06/11/22 Range/Units 02:09 02:09 02:09 WBC 5.24 (4.8-10.8) K/ul RBC 4.02 L (4.70-6.10) M/uL Hgb 13.2 L (14.0-18.0) g/dl Hct 38.0 L (42.0-52.0) % MCV 94.5 (80.0-100.0) fL MCH 32.8 (25.0-34.0) pg MCHC 34.7 (32.0-36.0) g/dL RDW Std Deviation 42.4 (36.4-46.3) fL RDW Coeff of Mila 12.2 (11.5-14.5) % Plt Count 159 (130-400) K/uL MPV 10.4 (9.4-12.4) fL Immature Gran % (Auto) 0.2 % Neut % (Auto) 55.7 % Lymph % (Auto) 33.0 % Preble % (Auto) 8.0 % Eos % (Auto) 2.5 % Baso % (Auto) 0.6 % Neut # (Auto) 2.92 (1.40-6.50) K/uL Lymph # (Auto) 1.73 (1.2-3.4) K/uL Preble # (Auto) 0.42 (0.11-0.59) K/uL Eos # (Auto) 0.13 (0-0.50) K/uL Baso # (Auto) 0.03 (0-0.2) K/uL Immature Gran # (Auto) 0.01 (0.01-0.20) K/uL APTT 28.8 (21.0-31.0) Seconds PTT Ratio 1.0 Sodium 140 (136-145) mmol/L Potassium 3.7 (3.5-5.1) mmol/L Chloride 109 H (98-107) mmol/L Carbon Dioxide 24 (21-32) mmol/L Anion Gap 7 (3-11) BUN 16 (6-23) mg/dl Creatinine 0.91 (0.6-1.4) mg/dl Est Cr Clr Drug Dosing 95.3 ml/min Est GFR ( Amer) 102.9 ml/min Est GFR (Non-Af Amer) 88.8 ml/min BUN/Creatinine Ratio 17.6 (10-20) Glucose 112 H (70-99(Fasting)) mg/dl Calcium 8.6 (8.6-10.3) mg/dl Magnesium (1.7-2.4) mg/dl Total Bilirubin 0.4 (0.2-1.0) mg/dl AST 31 (13-39) U/L ALT 17 (7-52) U/L Alkaline Phosphatase 71 (34-104) U/L Troponin I High Sens 6.7 (0-20) pg/ml Total Protein 6.6 (6.0-8.3) gm/dl Albumin 4.1 (3.4-5.0) gm/dl Globulin 2.5 (2.5-4.0) gm/dl Albumin/Globulin Ratio 1.6 (0.9-2) Lipase 52 (11-82) U/L SARS-CoV-2, RNA, NAAT (NEGATIVE) Diagnostic Findings Chest X-Ray 06/11/22 02:15 XR chest 1V portable CLINICAL HISTORY: Chest pain, nonspecific COMPARISON STUDY: Chest radiograph and chest CT February 07, 2020. FINDINGS: A dual-lead left subclavian pacemaker is in place. Cardiomediastinal silhouette is stable. There is no pneumothorax or pleural effusion. Upper lobe predominant emphysema is present. There is no consolidation. There is no evidence for pulmonary edema. IMPRESSION: No acute cardiopulmonary findings. Emphysema. ACT 112: Negative or not required by law. Electronically signed by: Juan Kirkland M.D. 06/11/2022 7:34 AM Abdomen/Pelvis CT 06/11/22 06:48 CT OF THE ABDOMEN AND PELVIS WITH CONTRAST CLINICAL HISTORY: Abdominal pain. COMPARISON STUDY: None. TECHNIQUE: Following IV administration of 88 mL of Optiray, axial images of the abdomen and pelvis were obtained from the lung bases to the proximal femurs. Images were reviewed in the axial, sagittal, and coronal planes. IV contrast was administered without complication. Automated exposure control was utilized for the study. A dose lowering technique was utilized adhering to the principles of ALARA. CT DOSE: 554.14 mGy.cm FINDINGS: Pacer leads are partially imaged. There is mild cardiomegaly. Lung bases are unremarkable. No pneumatosis, free air or portal venous gas is present. Note is made of subtle stranding adjacent to the lesser curvature of the stomach shown on axial image 89 of 466. There is a possible subtle adjacent gastric outpouching on axial image 99 which could reflect an ulcer. There is no extraluminal gas. Liver, spleen, adrenal glands and pancreas are unremarkable. Water attenuation bilateral renal lesions reflect cysts. A few subcentimeter lesions are too small to characterize. There is no hydronephrosis. There is no biliary or pancreatic ductal dilatation. No peripancreatic or pericholecystic stranding is present. There is no evidence for a bowel obstruction. The appendix is normal. There is no free fluid. Major vasculature is patent. There is mild plaque of the abdominal aorta and branch vessels. No lymphadenopathy. There are no acute fracture. Severe left hip osteoarthritis is noted. IMPRESSION: 1. Subtle stranding adjacent to the lesser curvature of the stomach with a possible adjacent gastric ulcer. The findings suggest peptic ulcer disease. No extraluminal gas. 2. No bowel obstruction. No bowel wall thickening. Normal appendix. 3. Multiple renal cysts. ACT 112: Negative or not required by law. Electronically signed by: Juan Kirkland M.D. 06/11/2022 7:30 AM
--- NOTE | 2022-06-11 10:35 | Electrocardiogram Report ---
Test Reason : Blood Pressure : / mmHG Vent. Rate : 064 BPM Atrial Rate : 064 BPM P-R Int : 234 ms QRS Dur : 098 ms QT Int : 428 ms P-R-T Axes : 065 012 048 degrees QTc Int : 441 ms Atrial-paced rhythm with prolonged AV conduction Abnormal ECG When compared with ECG of 07-FEB-2020 14:59, No significant change was found Confirmed by Junaid Ch ([id number]) on 06/11/2022 10:35:30 AM Referred By: REFERRED SELF Confirmed By:Junaid Ch
--- NOTE | 2022-06-11 10:36 | Electrocardiogram Report ---
Test Reason : Blood Pressure : / mmHG Vent. Rate : 062 BPM Atrial Rate : 062 BPM P-R Int : 242 ms QRS Dur : 092 ms QT Int : 434 ms P-R-T Axes : 100 010 045 degrees QTc Int : 440 ms Atrial-paced rhythm with prolonged AV conduction Abnormal ECG When compared with ECG of 11-JUN-2022 02:01, (unconfirmed) No significant change was found Confirmed by Junaid Ch ([id number]) on 06/11/2022 10:35:42 AM Referred By: REFERRED SELF Confirmed By:Junaid Ch
--- NOTE | 2022-06-11 10:50 | Cardiology Consultation ---
Date of Consultation June 11, 2022 Assessment & Plan (1) Atypical chest pain: (2) Presence of cardiac pacemaker: (3) GERD (gastroesophageal reflux disease): Plan Patient is a 66-year-old male with underlying cardiac issues which include sick sinus syndrome status post dual-chamber pacemaker insertion with normal device function, underlying congenital anomalies including small membranous VSD and an patent foramen ovale but normal overall systolic function. VSD not hemodynamically significant but source of murmur Presents now with symptoms of chest and abdominal discomfort. Atypical for angina. Cardiac enzymes negative EKG without ischemic changes with chronic atrial pacing, normal AV conduction. Cardiac enzymes normal CT of abdomen suggest gastric ulcer Recommendations: Discussed pacemaker in detail with patient noting normal function and adequate battery life Proceed with GI work-up as planned no cardiac contraindications to sedation or procedure Continue hypertension therapies with losartan 50 mg/day History of Present Illness Reason for Consultation: Abdominal pain, chest discomfort Requesting Physician: Dr. Salcedo Attending Physician: Susan Salcedo, DO History of Present Illness Patient is a 66-year-old male referred for evaluation with underlying medical issues as outlined in past cardiac visit of 04/06/2022 1. HFrEF historically, with return to normal LV systolic function a. Resolved on echo dated 04/07/2020 at [facility], LVEF 60-65% no WMA. b. Heart cath 1993-no blockages per patient 2. Sick sinus syndrome with Medtronic dual chamber permanent pacemaker implantation in 2003, generator exchange 2015 Medtronic Adapta [id number] 3. Hypertension 4. Tobacco use 5. Chronic pain 6. GERD 7. Small membranous VSD, patent foramen ovale with longstanding murmur 8. Low HDL dyslipidemia Patient seen and examined and additional history obtained from patient who is only fair historian. Notes having been experiencing symptoms of both abdominal and chest discomfort. No exertional relationship. Physically active about home and jobs denies shortness of breath, tachypalpitations, syncope or near syncope. Has been taking additional topical Aleve for pain relief No visualized bleeding issues melena medic easier dysuria hematuria Patient concern regarding pacemaker as initial implantation had reached DEB long before replacement. Recent interrogation reveals greater than 1-1/2 years battery life with marked reassurance gain on discussion CT of abdomen on initial evaluation in ER suggested gastric ulcer Allergies Allergy/AdvReac Type Severity Reaction Status Date / Time No Known Allergies Allergy Unverified 06/11/22 02:32 Home Medications Medication Instructions Recorded Confirmed Type albuterol sulfate 2.5 mg/3 mL 2.5 mg inhalation Q4 PRN Wheezing 11/01/20 06/11/22 History (0.083 %) solution for nebulization medical marijuana 1 dose PO UD PRN Unknown 11/01/20 06/11/22 History albuterol sulfate 90 mcg/actuation 2 puff inhalation Q4 PRN Wheezing 06/11/22 06/11/22 History aerosol inhaler losartan 50 mg tablet 50 mg PO DAILY 06/11/22 06/11/22 History Patient History Medical History Arthralgia of pelvic region and thigh Carpal tunnel syndrome Essential hypertension GERD (gastroesophageal reflux disease) Osteoarthritis Pulmonary emphysema Shoulder joint pain Tobacco use Surgical History No significant past surgical history Social History Smoking Status: Current every day smoker Cigarettes Per Day: 6; Second Hand Exposure: No; Do You Dip or Chew Tobacco: No; Tobacco Cessation Education Requested by Patient: No Hx Alcohol Use: No Hx Substance Use: Yes Last Used Substance: Days (ago) Last Used Substance Other:: yesterday Substance Use Type Other:: patient state he has a card Preferred Language: Czech Beliefs That Will Affect Care: None marital status: Current Living Situation: Significant Other Feels Safe at Home: Yes Safety Concerns: Feels Safe At This Time Assistive Devices: Glasses Assistive Devices Comment: reading glasses Review of Systems Review of Systems: All systems reviewed & are unremarkable except as noted in HPI & below Physical Exam Constitutional: WD/WN, vitals as above no acute distress Eyes: PERRL, conjunctivae normal, anicteric sclerae ENMT: external ear and nose normal, oropharynx normal Neck: trachea midline, no thyromegaly Respiratory: normal respiratory effort, lungs clear to auscultation Cardiovascular: Rate/Rhythm: regular rate and regular rhythm (Atrial paced) Heart Sounds: + murmur (Grade 2 or 6 systolic murmur at apex, no diastolic) Vessels: no JVD Extremities: no edema Chest (Breasts): Chest: + pacemaker Gastrointestinal (Abdomen): normal bowel sounds, soft, nontender, no hepatosplenomegaly Musculoskeletal: no cyanosis or clubbing, extremities motor strength 5/5 Skin: no rashes, warm and dry Results & Data Vital Signs (Past 12 Hours) Vital Signs Temp Pulse Pulse Pulse Resp BP BP 06/11/22 08:00 61 06/11/22 08:00 06/11/22 08:00 36.4 C L 61 14 153/98 H 06/11/22 08:00 36.4 C L 61 14 153/98 H 06/11/22 07:21 63 20 129/87 06/11/22 06:00 60 18 136/89 06/11/22 05:02 61 16 149/101 H 06/11/22 05:59 60 06/11/22 03:00 62 18 112/79 06/11/22 03:21 61 16 112/79 06/11/22 02:33 06/11/22 02:27 36.5 C 60 20 124/85 06/11/22 02:12 60 Pulse Ox O2 Del Method 06/11/22 08:00 06/11/22 08:00 Room Air 06/11/22 08:00 98 Room Air 06/11/22 08:00 98 Room Air 06/11/22 07:21 98 Room Air 06/11/22 06:00 98 Room Air 06/11/22 05:02 97 Room Air 06/11/22 05:59 06/11/22 03:00 99 Room Air 06/11/22 03:21 98 Room Air 06/11/22 02:33 97 Room Air 06/11/22 02:27 97 Room Air 06/11/22 02:12 Laboratory Results Laboratory Results - last 24 hr 06/11/22 06/11/22 06/11/22 02:09 02:09 02:09 WBC 5.24 RBC 4.02 L Hgb 13.2 L Hct 38.0 L MCV 94.5 MCH 32.8 MCHC 34.7 RDW Std Deviation 42.4 RDW Coeff of Mila 12.2 Plt Count 159 MPV 10.4 Immature Gran % (Auto) 0.2 Neut % (Auto) 55.7 Lymph % (Auto) 33.0 Loving % (Auto) 8.0 Eos % (Auto) 2.5 Baso % (Auto) 0.6 Neut # (Auto) 2.92 Lymph # (Auto) 1.73 Loving # (Auto) 0.42 Eos # (Auto) 0.13 Baso # (Auto) 0.03 Immature Gran # (Auto) 0.01 APTT 28.8 PTT Ratio 1.0 Sodium 140 Potassium 3.7 Chloride 109 H Carbon Dioxide 24 Anion Gap 7 BUN 16 Creatinine 0.91 Est Cr Clr Drug Dosing 95.3 Est GFR ( Amer) 102.9 Est GFR (Non-Af Amer) 88.8 BUN/Creatinine Ratio 17.6 Glucose 112 H Calcium 8.6 Magnesium Total Bilirubin 0.4 AST 31 ALT 17 Alkaline Phosphatase 71 Troponin I High Sens 6.7 Total Protein 6.6 Albumin 4.1 Globulin 2.5 Albumin/Globulin Ratio 1.6 Lipase 52 SARS-CoV-2, RNA, NAAT 06/11/22 06/11/22 06/11/22 03:48 05:02 06:31 WBC RBC Hgb Hct MCV MCH MCHC RDW Std Deviation RDW Coeff of Mila Plt Count MPV Immature Gran % (Auto) Neut % (Auto) Lymph % (Auto) Loving % (Auto) Eos % (Auto) Baso % (Auto) Neut # (Auto) Lymph # (Auto) Loving # (Auto) Eos # (Auto) Baso # (Auto) Immature Gran # (Auto) APTT PTT Ratio Sodium Potassium Chloride Carbon Dioxide Anion Gap BUN Creatinine Est Cr Clr Drug Dosing Est GFR ( Amer) Est GFR (Non-Af Amer) BUN/Creatinine Ratio Glucose Calcium Magnesium 2.1 Total Bilirubin AST ALT Alkaline Phosphatase Troponin I High Sens 5.7 6.0 Total Protein Albumin Globulin Albumin/Globulin Ratio Lipase SARS-CoV-2, RNA, NAAT NEGATIVE Diagnostic Findings Echocardiogram 06/08/2022 The LV wall thickness is mildly increased (concentric). There is borderline posterior mitral leaflet prolapse. Mild mitral regurgitation is present. Mild tricuspid regurgitation is present. There is no evidence of pulmonary hypertension. There is an atrial septal aneurysm. There a moderate right to left intracardiac shunt with injection of agitated saline contrast at rest and with valsalva. There is a small [id number] interatrial shunt per color Doppler interrogation. Findings suggest atrial septal aneurysm with moderate size PFO. There is a congenital paramembranous ventricular septal defect. There is a small left to right interventricular shunt. Pacemaker interrogation 05/10/2022 Normal device function estimated battery life greater than 5 years. Predominantly atrial pacing ECG Additional Comments: 06/11/2022 x2 atrial paced rhythm with normal AV conduction no ST segment abnormalities or Q wave
[2022-06-11 14:26] LABS: Appearance Urine Clear (Clear); Bilirubin Urine Negative (Negative); Blood Urine Negative (Negative); Color Urine Yellow; Glucose Urine UA Negative (Negative); Ketones Urine Negative (Negative); Leukocyte Esterase Urine Negative (Negative); Nitrite Urine Negative (Negative); Protein Urine Negative (Negative); Specific Gravity Urine 1.045 (1.000-1.030); Urobilinogen Urine Negative (Negative)
[2022-06-11] MEDS: SUCRALFATE 1 GM/10 ML UDC PO SCH ×2 (17:09→19:51)
[2022-06-11] MEDS ORDERED: ALUMINUM/MAGNESIUM/SIMETH (MAALOX MAX) 30 ML UDC PO STA (18:53)
[2022-06-11] MEDS ORDERED: LACTATED RINGER'S 1,000 ML IV SCH (19:00)
[2022-06-11] MEDS ORDERED: traMADol HCL 50 MG TABLET PO PRN (19:35)
[2022-06-11] MEDS ORDERED: FAMOTIDINE 20 MG in SYRINGE 3 ML IV PRN (21:00)
[2022-06-12 07:36] LABS: Basophils # (auto) 0.02 K/uL (0-0.2); Basophils % (auto) 0.5 %; Eosinophils # (auto) 0.14 K/uL (0-0.50); Eosinophils % (auto) 3.2 %; Hematocrit (blood only) 40.2 % (42.0-52.0); Hemoglobin 13.7 g/dl (14.0-18.0); Immature Granulocytes # (auto) 0.01 K/uL (0.01-0.20); Immature Granulocytes % (auto) 0.2 %; Lymphocytes # (auto) 1.42 K/uL (1.2-3.4); Lymphocytes % (auto) 32.9 %; Mean Corpuscular Hemoglobin 32.2 pg (25.0-34.0); Mean Corpuscular Hgb Conc 34.1 g/dL (32.0-36.0); Mean Corpuscular Volume 94.4 fL (80.0-100.0); Mean Platelet Volume 10.1 fL (9.4-12.4); Monocytes # (auto) 0.42 K/uL (0.11-0.59); Monocytes % (auto) 9.7 %; Neutrophils % (auto) 53.5 %; Platelet Count 150 K/uL (130-400); RDW Coefficient of Variation 12.1 % (11.5-14.5); RDW Standard Deviation 42.3 fL (36.4-46.3); Red Blood Count 4.26 M/uL (4.70-6.10); White Blood Count 4.31 K/ul (4.8-10.8)
[2022-06-12 07:55] LABS: BUN Creatinine Ratio 15.3 (10-20); Calcium 8.5 mg/dl (8.6-10.3); Creatinine Clr Calc Pharmacy 107.8 ml/min; Est GFR (African American) 106.7 ml/min; Est GFR (Non-African American) 92.1 ml/min; Potassium 3.9 mmol/L (3.5-5.1)
[2022-06-12] MEDS ORDERED: PROPOFOL IV EMULSION 10 MG/ML 20 ML VIAL IV ONE (08:30)
[2022-06-12] MEDS ORDERED: LIDOCAINE 2% 2 ML VIAL/AMP(20MG/ML) INFIL ONE (08:30)
--- NOTE | 2022-06-12 08:35 | Anesthesiology Consultation ---
Date of Service June 12, 2022 Assessment & Plan Consults Requested medical & cardiac Pulmonary History Surgery Operation Date: 06/12/22 16:30 Proposed Procedures p Esophagogastroduodenoscopy Dr Lee - Trinidad Lee, DO Height/Weight Height: 6 ft 4 in Weight: 100.9 kg Allergies Allergy/AdvReac Type Severity Reaction Status Date / Time No Known Allergies Allergy Unverified 06/11/22 02:32 Medications Home Medications Medication Instructions Recorded Confirmed Last Taken albuterol sulfate 2.5 mg/3 mL 2.5 mg inhalation Q4 PRN Wheezing 11/01/20 06/11/22 Unknown (0.083 %) solution for nebulization medical marijuana 1 dose PO UD PRN Unknown 11/01/20 06/11/22 Unknown albuterol sulfate 90 mcg/actuation 2 puff inhalation Q4 PRN Wheezing 06/11/22 06/11/22 Unknown aerosol inhaler losartan 50 mg tablet 50 mg PO DAILY 06/11/22 06/11/22 Unknown Active Medications Generic Name Dose Route Start Last Admin Trade Name Freq PRN Reason Stop Dose Admin Acetaminophen 650 mg 06/11/22 08:01 06/11/22 17:51 Acetaminophen 325 Mg Tab PO 07/11/22 08:00 650 mg Q4H PRN Administration Pain or Fever Losartan Potassium 50 mg 06/11/22 09:00 06/11/22 09:18 Losartan Potassium 50 Mg Tab PO 07/11/22 08:59 50 mg DAILY GHAZALA Administration Pantoprazole Sodium 40 mg 06/11/22 09:00 06/11/22 09:18 Pantoprazole 40 Mg Tab PO 07/11/22 08:59 40 mg DAILY GHAZALA Administration Sucralfate 1 gm 06/11/22 17:00 06/11/22 19:51 Sucralfate 1 Gm/10 Ml Udc PO 07/11/22 16:59 1 gm QID GHAZALA Administration Tramadol HCl 25 - 50 mg 06/11/22 19:35 06/11/22 19:51 Tramadol Hcl 50 Mg Tablet PO 07/11/22 19:34 50 mg Q4H PRN Administration Pain NPO Date Last Intake of Fluids: 06/11/22 Time Last Intake of Fluids: 20:00 Date Last Intake of Solids: 06/11/22 Time Last Intake of Solids: 18:00 Past Medical History Medical History Arthralgia of pelvic region and thigh Carpal tunnel syndrome Essential hypertension GERD (gastroesophageal reflux disease) Osteoarthritis Pulmonary emphysema Shoulder joint pain Tobacco use Past Surgical History Surgical History No significant past surgical history Social History Smoking Status: Current every day smoker tobacco type: cigarettes Smoking cigarettes per day: 6 Do You Dip or Chew Tobacco: No Hx Alcohol Use: No Hx Substance Use: Yes substance use type: marijuana Substance Use Type Other:: patient state he has a card Last Used Substance: Days (ago) Last Used Substance Other:: yesterday Physical Exam Vital Signs Last Vital Signs Temp 36.3 C L 06/12/22 08:17 Pulse 64 06/12/22 08:17 Resp 18 06/12/22 08:17 BP 130/81 06/12/22 08:17 Pulse Ox 97 06/12/22 08:17 O2 Del Method Room Air 06/12/22 08:17 Testing Laboratory Results 06/12/22 07:14 06/12/22 07:14 APTT 28.8 Seconds (21.0-31.0) 06/11/22 02:09 Urine Color Yellow 06/11/22 Unknown Urine Appearance Clear (Clear) 06/11/22 Unknown Urine pH 8.0 (4.5-7.5) H 06/11/22 Unknown Ur Specific Ferguson 1.045 (1.000-1.030) H 06/11/22 Unknown Urine Protein Negative (Negative) 06/11/22 Unknown Urine Glucose (UA) Negative (Negative) 06/11/22 Unknown Urine Ketones Negative (Negative) 06/11/22 Unknown Urine Nitrite Negative (Negative) 06/11/22 Unknown Ur Leukocyte Esterase Negative (Negative) 06/11/22 Unknown
--- NOTE | 2022-06-12 08:50 | Gastrointestinal Consultation ---
Date of Consultation June 12, 2022 Assessment & Plan (1) Melena: EGD today History of Present Illness Reason for Consultation: melena abd pain Attending Physician: Susan Salcedo DO History of Present Illness abd pain melena Allergies Allergy/AdvReac Type Severity Reaction Status Date / Time No Known Allergies Allergy Unverified 06/11/22 02:32 Home Medications Medication Instructions Recorded Confirmed Type albuterol sulfate 2.5 mg/3 mL 2.5 mg inhalation Q4 PRN Wheezing 11/01/20 06/11/22 History (0.083 %) solution for nebulization medical marijuana 1 dose PO UD PRN Unknown 11/01/20 06/11/22 History albuterol sulfate 90 mcg/actuation 2 puff inhalation Q4 PRN Wheezing 06/11/22 06/11/22 History aerosol inhaler losartan 50 mg tablet 50 mg PO DAILY 06/11/22 06/11/22 History Patient History Medical History Arthralgia of pelvic region and thigh Carpal tunnel syndrome Essential hypertension GERD (gastroesophageal reflux disease) Osteoarthritis Pulmonary emphysema Shoulder joint pain Tobacco use Surgical History No significant past surgical history Social History Smoking Status: Current every day smoker Cigarettes Per Day: 6; Second Hand Exposure: No; Do You Dip or Chew Tobacco: No; Tobacco Cessation Education Requested by Patient: No Hx Alcohol Use: No Hx Substance Use: Yes Last Used Substance: Days (ago) Last Used Substance Other:: yesterday Substance Use Type Other:: patient state he has a card Preferred Language: Venezuelan Beliefs That Will Affect Care: None marital status: Current Living Situation: Significant Other Feels Safe at Home: Yes Safety Concerns: Feels Safe At This Time Assistive Devices: Glasses Assistive Devices Comment: reading glasses Results & Data Vital Signs (Past 12 Hours) Vital Signs Temp Pulse Resp BP Pulse Ox O2 Del Method 06/12/22 08:17 36.3 C L 64 18 130/81 97 Room Air 06/12/22 07:37 36.6 C 61 16 113/69 100 Room Air
[2022-06-12] MEDS ORDERED: GLYCOPYRROLATE 0.2 MG/ML VIAL ONE (08:56)
[2022-06-12] MEDS ORDERED: ASPIRIN 81 MG ECTAB PO SCH ×2 (09:00)
--- NOTE | 2022-06-12 09:11 | GI REPORT ---
Patient Name: Abdullahi Sauceda Procedure Date: 06/12/2022 8:26 AM Date of : 1955 Admit Type: Inpatient Age: 66 Gender: Male Attending MD: Trinidad Lee DO, Procedure: Upper GI endoscopy Providers: Trinidad Lee DO Referring MD: Susan Salcedo Do Indications: Epigastric abdominal pain, Abnormal CT of the GI tract Medicines: Propofol per Anesthesia Complications: No immediate complications. Estimated blood loss: Minimal. Estimated Blood Loss: Estimated blood loss was minimal. Procedure: Pre-Anesthesia Assessment: - Prior to the procedure, a History and Physical was performed, and patient medications, allergies and sensitivities were reviewed. The patient's tolerance of previous anesthesia was reviewed. - The risks and benefits of the procedure and the sedation options and risks were discussed with the patient. All questions were answered and informed consent was obtained. - Patient identification and proposed procedure were verified prior to the procedure by the physician and the nurse. The procedure was verified in the pre-procedure area in the procedure room. - Mental Status Examination: alert and oriented. Airway Examination: normal oropharyngeal airway and neck mobility. Respiratory Examination: clear to auscultation. CV Examination: normal. Abdominal Examination: bowel sounds present, abdomen soft and non-tender, no masses or organomegaly noted. - ASA Grade Assessment: III - A patient with severe systemic disease. After obtaining informed consent, the endoscope was passed under direct vision. Throughout the procedure, the patient's blood pressure, pulse, and oxygen saturations were monitored continuously. The Endoscope was introduced through the mouth, and advanced to the second part of duodenum. The upper GI endoscopy was accomplished without difficulty. The patient tolerated the procedure well. Findings: The esophagus was normal. Few non-bleeding superficial gastric ulcers with no stigmata of bleeding were found in the gastric antrum. Biopsies were taken with a cold forceps for Helicobacter pylori testing. Verification of patient identification for the specimen was done by the physician and nurse using the patient's name and date. Estimated blood loss was minimal. The examined duodenum was normal. Impression: - Normal esophagus. - Non-bleeding gastric ulcers with no stigmata of bleeding. Biopsied. - Normal examined duodenum. Recommendation: - Await pathology results. - Follow an antireflux regimen. - Use a proton pump inhibitor PO BID. - No ibuprofen, naproxen, or other non-steroidal anti-inflammatory drugs. - Return patient to hospital jain. Trinidad Lee D.O. Trinidad Lee, 06/12/2022 9:10:46 AM This report has been signed electronically. Note Initiated On: 06/12/2022 8:26 AM Number of Addenda: 0 I attest to the content of the Intraoperative Record and orders documented therein, exceptions below {[id number]}
[2022-06-12] MEDS: PANTOprazole 40 MG TAB PO SCH (10:18)
[2022-06-12] MEDS: SUCRALFATE 1 GM/10 ML UDC PO SCH (10:18)
[2022-06-12] MEDS: LOSARTAN POTASSIUM 50 MG TAB PO SCH (10:18)
--- NOTE | 2022-06-12 11:06 | Cardiology Progress Note ---
Date of Service June 12, 2022 Assessment & Plan (1) Atypical chest pain: (2) Presence of cardiac pacemaker: (3) GERD (gastroesophageal reflux disease): Plan 66-year-old male with underlying cardiac issues which include sick sinus syndrome status post dual-chamber pacemaker insertion with normal device function, underlying congenital anomalies including small membranous VSD and an patent foramen ovale but normal overall systolic function. VSD not hemodynamically significant but source of murmur. Atypical epigastric and lower chest discomfort secondary to gastric ulcer. Also confirmed per EGD today. No further inpatient cardiac testing or intervention. Continue current medical therapies. Outpatient cardiology follow-up as scheduled. Pacemaker followed via the heart rhythm device clinic at [facility]. Admission and Anticipated Discharge Date Admission Date: June 11, 2022 Subjective Patient seen examined the bedside. 66-year-old male presented to the emergency department with atypical chest and epigastric discomfort. EGD performed today demonstrating gastric ulcer. Recent echocardiogram performed in the outpatient setting demonstrating a perimembranous VSD which is not hemodynamically significant. Patient offers no complaints from a cardiovascular standpoint. Review of Systems Review of Systems: All systems reviewed & are unremarkable except as noted in Subjective Physical Exam Constitutional: well developed and well nourished; no acute distress Respiratory: normal respiratory effort; no respiratory distress, no labored breathing and no retractions Auscultation: no crackles, no rales, no rhonchi and no wheezes Cardiovascular: Rate/Rhythm: regular rate and regular rhythm Heart Sounds: normal S1, normal S2 and + murmur (2-3/6 low pitched blowing murmur heard best at the left lower sternal borde) Gastrointestinal (Abdomen): Inspection/Auscultation: abdomen not distended Percussion/Palpation: abdomen soft; no guarding and abdomen not rigid Neurologic: CN's II-XI intact bilaterally and moves all extremities Results & Data Vital Signs (Past 12 Hours) Vital Signs Temp Pulse Pulse Resp BP Pulse Ox O2 Del Method 06/12/22 10:17 36.5 C 62 17 133/80 97 Room Air 06/12/22 09:36 61 16 129/94 98 Room Air 06/12/22 09:21 61 15 109/72 96 Room Air 06/12/22 09:08 64 64 16 96/70 L 96 Room Air 06/12/22 08:17 36.3 C L 64 18 130/81 97 Room Air 06/12/22 07:37 36.6 C 61 16 113/69 100 Room Air Laboratory Results CBC 06/12/22 Range/Units 07:14 WBC 4.31 L (4.8-10.8) K/ul RBC 4.26 L (4.70-6.10) M/uL Hgb 13.7 L (14.0-18.0) g/dl Hct 40.2 L (42.0-52.0) % Plt Count 150 (130-400) K/uL Neut # (Auto) 2.30 (1.40-6.50) K/uL Lymph # (Auto) 1.42 (1.2-3.4) K/uL Robertson # (Auto) 0.42 (0.11-0.59) K/uL Eos # (Auto) 0.14 (0-0.50) K/uL Baso # (Auto) 0.02 (0-0.2) K/uL Comprehensive Metabolic Panel 06/12/22 Range/Units 07:14 Sodium 138 (136-145) mmol/L Potassium 3.9 (3.5-5.1) mmol/L Chloride 106 (98-107) mmol/L Carbon Dioxide 29 (21-32) mmol/L BUN 13 (6-23) mg/dl Creatinine 0.85 (0.6-1.4) mg/dl Glucose 89 (70-99(Fasting)) mg/dl Calcium 8.5 L (8.6-10.3) mg/dl Intake and Output 06/11/22 06/12/22 06/12/22 22:59 06:59 14:59 Intake Total 1000 / 1000 938.667 / 938.667 Balance 1000 / 550 938.667 / 938.667 Intake: IV 1000 / 1000 938.667 / 938.667 Lactated Ringer's 1,000 ml @ 80 1000 / 1000 938.667 / 938.667 mls/hr IV .[id number] [facility] Rx#: [id number] Other: # Unmeasured Voids 2 1 Weight 100.9 kg Patient Weight 06/13/22 06:59 Weight 100.9 kg
--- NOTE | 2022-06-12 12:05 | Discharge Summary ---
Discharge Summary Date of Service June 12, 2022 Notes For Next Care Provider Please followup results from gastric ulcer biopsy taken 06/12 during EGD Results were pending at time of discharge from the hospital Cont efforts for smoking cessation Cont PPI BID x 3 months then once daily thereafter Avoid NSAIDs Medication Changes From Visit Protonix 40mg PO BID x 3 months, then once daily Carafate 1gm ACHS x 2 weeks Admission HPI Per Admitting Provider History obtained from patient, family, and records. Medical history significant for chronic diastolic heart failure (EF 55 to 59%, TTE 2022), symptomatic bradycardia status post PPM, valvular heart disease (mild MR/TR), atrial septal aneurysm with moderate size PFO, VSD, hypertension, asthma, GERD, chronic anemia (baseline hemoglobin of 13), ongoing tobacco abuse. Last confinement 2017 for chest pain. Stress test negative for inducible ischemia. Patient switched to [facility] providers 3 months ago. Patient seen by [facility] cardiology provider for the first time 2 months ago. Patient presenting with symptoms of progressive shortness of breath with and without exertion. Patient started on aspirin due to family history of cardiovascular disease. Outpatient TTE (06/2022) showed EF 55 to 59%. Borderline posterior mitral leaflet prolapse. Mild MR/mild TR. Atrial septal aneurysm with moderate size PFO noted. Congenital perimembranous ventricular septal defect with small [id number] intraventricular shunt. Consideration for outpatient nuclear stress test to rule out ischemic cause of progressive shortness of breath last chest discomfort as per documentation. 2 weeks ago, patient noted transient left-sided chest pain symptoms. A week later, patient noted achy abdominal discomfort and transient dark stools which he attributes to Pepto-Bismol intake. Patient admits to taking ajoa-oti-[id number] NSAIDs for chronic pain, about 6 tabs daily. Patient woke up last night with left-sided chest pain going to the shoulder. Patient not sure if belly pain connected to chest pain. Improved symptoms with nitroglycerin. Patient uncomfortable going home from the ER. Medical History as above Surgical History : PPM, shoulder surgery, hip surgery Family History : Heart disease Personal/Social history : Few cigarettes a day, no EtOH intake, [employer] employee Principal Dx & Hospital Course #1 = Principal Diagnosis (1) PUD (peptic ulcer disease): seen on CT and patient is clinically describing this. Evidence of bleeding intermittently given h/o melena reported last week. Heavy NSAID use and tobacco use ongoing. Want to avoid narcotics given history of heavy use in the past. Avoid NSAids. Protonix was started and he also received carafate and maalox PRN for stomach discomfort. EGD revealed nonbleeding gastric ulcers with stigmata of bleeding. This was biopsied with results pending at time of discharge. (2) Shoulder joint pain: Recommend avoiding NSAIDs and moving to Tylenol PRN instead. (3) Tobacco use: (4) Presence of cardiac pacemaker: 2/2 symptomatic bradycardia in 2003. Follows with cardiology as outpatient. (5) VSD (ventricular septal defect): structural change noted on echo. Not hemodynamically significant. (6) PFO (patent foramen ovale): structural change noted on echo. Discharged in stable condition with close primary care followup recommended. All symptoms were resolved at time of discharge. Discharge Exam CONSTITUTIONAL: WNWD, vitals as above, generally well-appearing, NAD EYES: normal conjunctivae, no scleral icterus ENT: external ear and nose normal, MMM NECK: trachea midline RESPIRATORY: clear to auscultation bilaterally, no crackles, rales or wheezes, normal respiratory effort CARDIOVASCULAR: regular rate and rhythm, S1 and 2 heard without murmurs, gallops or rubs, no JVD, no peripheral edema CHEST: inspection of chest was normal GASTROINTESTINAL: soft, nontender, ND, no guarding MUSCULOSKELETAL: strength 5/5 throughout, head is normocephalic and atraumatic, SKIN: warm and dry, NEUROLOGIC: CN 2-12 grossly intact, no sensory deficit, normal cognition, normal speech, no tremor PSYCHIATRIC: alert cooperative and oriented to person, place and time. Euthymic mood, makes good eye contact, language grossly intact, recent and remote memory grossly intact. Updated Medication List Medication Instructions Recorded Confirmed Type albuterol sulfate 2.5 mg/3 mL 2.5 mg inhalation Q4 PRN Wheezing 11/01/20 06/11/22 History (0.083 %) solution for nebulization medical marijuana 1 dose PO UD PRN Unknown 11/01/20 06/11/22 History albuterol sulfate 90 mcg/actuation 2 puff inhalation Q4 PRN Wheezing 06/11/22 06/11/22 History aerosol inhaler losartan 50 mg tablet 50 mg PO DAILY 06/11/22 06/11/22 History pantoprazole 40 mg tablet,delayed 40 mg PO BID #60 tabs 06/12/22 Rx release sucralfate 1 gram tablet (Carafate) 1 g PO ACHS #60 tabs 06/12/22 Rx Hospital Stay Data Consultations 06/11/22 05:07 ED Decision to Admit Stat 06/11/22 07:35 Consult Cardiology Routine 06/11/22 08:44 Consult Gastroenterology Routine Procedures Performed Operation Date: 06/12/22 16:30 Actual Procedures p EGD Biopsy Cytology - Trinidad Lee DO Diagnostic Imagining Performed 06/11/22 06:48 CT Abd and Pelvis [CT abd pelvis IV con only] Stat Pending Results Patient Have Any Pending Studies at Discharge: No Discharge Instructions Given to Patient (Per Discharging Provider) Please take all medications as instructed on discharge list below. Please continue to avoid Advil naproxen or other nonsteroidal anti-inflammatory drugs (NSAIDs). Please continue Protonix twice daily for 3 months then once daily thereafter. It is recommended that you follow-up with your primary care doctor within 1 week of discharge to ensure you are still doing well and tolerating medication without issue. Smoking cessation is strongly advised It was a pleasure taking care of you! Please call if you have any questions or problems. You can reach a [facility] hospitalist on duty at [facility] 24 hours a day by calling [phone]. Take care of yourself. Susan Salcedo, [facility] Hospitalist Total Time Total Time Spent Total Time Spent (In Minutes): 60
--- NOTE | 2022-06-12 15:03 | Anesthesiology Progress Note ---
Date of Service June 12, 2022 Anesthesia Post Procedure Vital Signs Vital Signs: Temp Pulse Pulse Resp BP Pulse Ox O2 Del Method 06/12/22 10:17 36.5 C 62 17 133/80 97 Room Air 06/12/22 09:36 61 16 129/94 98 Room Air 06/12/22 09:21 61 15 109/72 96 Room Air 06/12/22 09:08 64 64 16 96/70 L 96 Room Air 06/12/22 08:17 36.3 C L 64 18 130/81 97 Room Air 06/12/22 07:37 36.6 C 61 16 113/69 100 Room Air 06/11/22 20:14 36.9 C 61 18 120/78 95 Room Air 06/11/22 17:32 36.5 C 61 18 135/84 96 Room Air 06/11/22 15:58 36.6 C 74 18 128/69 Room Air Transfer of Care Handoff Completed per policy Notes Mental Status: alert / awake / arousable and participated in evaluation Nausea / Vomiting: adequately controlled Pain: adequately controlled Airway Patency, RR, SpO2: stable & adequate BP & HR: stable & adequate Hydration State: stable & adequate Anesthetic Complications: no major complications apparent and Pt Satisfied with anesthetic care
[2022-06-12] MEDS ORDERED: PANTOprazole 40 MG TAB PO SCH (21:00)
== END 2022-06-12 12:42 | disposition home or self-care (01) | DRG 384 ==
LOC: ED 02:07 → 2S 02:07 → 3W 17:32